=== PATIENT | female | born 1950 | race Caucasian/White ===

== ENCOUNTER 2022-01-29 09:26 | Observation (INO) ==
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
[2022-01-29] MEDS ORDERED: HYDROmorphone 1 MG/ML SYRINGE IM ONE (09:52)
--- NOTE | 2022-01-29 10:41 | Cat Scan Report ---
INDICATION: Pain in LT femur TECHNIQUE: Axial images through the pelvis and left thigh. Sagittal and coronal reformatted images. Intravenous contrast material was not administered. COMPARISON: None. FINDINGS: L4 and L5 vertebral body heights are within normal limits. There is degenerative disc disease at L4-5 and L5-S1 with vacuum discs. No detectable disc herniation. There is degenerative facet arthropathy with osseous and ligamentous hypertrophy. There is spinal canal stenosis at L4-5. Sacrum is negative. No insufficiency fracture. No lytic lesion. Pelvis is negative. There is no fracture. No lytic or sclerotic lesion. Superior and inferior pubic rami are negative. No acute fracture. Left femoral head and neck are negative. There is no fracture. No evidence for avascular necrosis. Right hip is negative. Left femur is negative. There is no fracture. No cortical destruction. No periosteal new bone formation. No soft tissue intrapelvic abnormality. Uterus is anteflexed. There is no adnexal mass. No free intraperitoneal fluid. There is sigmoid diverticulosis without evidence for diverticulitis There is mild atherosclerotic calcification of the distal abdominal aorta and common iliac arteries. No aneurysmal dilatation. There is calcified plaque in the left common femoral artery. There is extensive calcification of the left superficial femoral artery and popliteal artery. There is probable stenosis of the left popliteal artery. Vascular patency is not evaluated on this noncontrast enhanced examination No soft tissue mass. No fluid collection or soft tissue gas. IMPRESSION: 1. No acute fracture 2. Atherosclerotic calcification involving the left superficial femoral artery and popliteal artery. Probable popliteal artery stenosis. Vascular patency is not evaluated on this noncontrast enhanced examination 3. Degenerative disc disease and facet arthropathy at L4-5 and L5-S1. L4-5 spinal canal stenosis 4. Sigmoid diverticulosis. No evidence for diverticulitis Interpreted and Authenticated by: Robert Boyd 01/29/22
[2022-01-29] MEDS ORDERED: HYDROmorphone 0.5 MG/0.5 ML SYRINGE IV PRN (11:44)
[2022-01-29 12:21] LABS: POC Calcium, Ionized 0.92 (1.16-1.32); POC Creatinine 3.8 (0.6-1.2); POC Potassium 3.8 (3.3-5.1)
--- NOTE | 2022-01-29 12:37 | Cat Scan Report ---
INDICATION: L knee pain TECHNIQUE: Axial images through the left knee. Sagittal and coronal reformatted images. COMPARISON: Previous CT scan of the left femur dated 01/29/2022 FINDINGS: Distal left femur is intact. No fracture. Femoral condyles are negative. Proximal tibia is negative. No tibial plateau fracture. There is a 5 mm osteochondral lesion in the lateral tibial plateau. This is not an acute abnormality. Mild degenerative narrowing of the lateral femoral-tibial joint. Small suprapatellar joint effusion demonstrated. Anterior cruciate ligament is grossly intact. Posterior cruciate ligament appears normal. Patella is negative. No patellar fracture. Quadriceps and patellar tendons are normal. There is atherosclerotic calcification of the distal superficial femoral artery and popliteal artery. Popliteal artery stenosis is possible. No other soft tissue abnormality. There is no popliteal cyst. No prepatellar soft tissue abnormality. IMPRESSION: 1. No left knee fracture 2. Mild degenerative joint disease. 5 mm osteochondral lesion in the lateral tibial plateau 3. Small joint effusion 4. Atherosclerotic calcification. Popliteal artery stenosis is possible Interpreted and Authenticated by: Robert Boyd 01/29/22
--- NOTE | 2022-01-29 12:51 | Cat Scan Report ---
INDICATION: Low back pain with Radiculopathy TECHNIQUE: Axial images of the lumbar spine. Sagittal and reformatted images. Axial angled reformatted images. COMPARISON: None. FINDINGS: Focal angulation of the anterior cortex of the L3 vertebral body. This may be a manifestation of mild compression informative. Superior endplate appears intact. Chronicity is not certain. There is no paraspinal soft tissue hematoma. There is no lytic lesion. No evidence for pathologic fracture. Other lumbar vertebral body heights are normal. Mild degenerative disc disease at L2-3. There is a bulging disc. There is facet arthropathy of mild osseous and ligamentous hypertrophy. There is mild spinal canal. Degenerative disc disease at L3-4. There is a bulging disc without well-defined focal herniation. There is facet arthropathy with osseous and ligamentous hypertrophy. There is moderate spinal canal stenosis. No foraminal stenosis. Degenerative disc disease at L4-5. There is a vacuum disc. There is bulging disc without detectable focal herniation. There is facet arthropathy with osseous and ligamentous hypertrophy and high-grade spinal canal stenosis. Degenerative disc disease at L5-S1. There is a bulging disc. There is mild spinal canal stenosis. No focal herniation. Sacrum and sacroiliac joints are unremarkable. No lytic lesion. No insufficiency fracture. There is atherosclerotic calcification of the abdominal aorta. No abdominal aortic aneurysm. 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 There is bilateral renal atrophy. No hydronephrosis. There is sigmoid diverticulosis without evidence for diverticulitis. IMPRESSION: 1. Cortical angulation involving the anterior aspects of the L3 vertebral body. Findings may be consistent with mild compression deformity. Superior endplate is intact. No significant paraspinal soft tissue hematoma. No evidence of pathologic fracture 2. Multilevel degenerative disc disease and facet arthropathy. Mild spinal canal stenosis at L2-3 and L5-S1. Moderate spinal canal stenosis at L3-4. High-grade spinal canal stenosis at L4-5 3. Atherosclerotic disease. 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 Sigmoid diverticulosis. No diverticulitis Interpreted and Authenticated by: Robert Boyd 01/29/22
[2022-01-29 13:11] LABS: Basophils # (Auto) 0.05 K/mcL (0.00-0.30); Basophils % (Auto) 0.3 % (0.0-2.0); Eosinophils # (Auto) 0.04 K/mcL (0.00-0.70); Eosinophils % (Auto) 0.3 % (0.0-7.0); Hematocrit 36.1 % (34.1-44.9); Hemoglobin 11.5 g/dL (11.2-15.7); Lymphocytes # (Auto) 2.59 K/mcL (1.50-4.80); Lymphocytes % (Auto) 16.9 % (15.5-49.0); Mean Cell Volume 91.4 fL (80.0-100.0); Mean Corpuscular HGB Conc 31.9 g/dL (31.0-36.0); Mean Platelet Volume 8.8 fL (8.8-12.5); Monocytes # (Auto) 1.26 K/mcL (0.10-0.90); Monocytes % (Auto) 8.2 % (1.0-12.0); Neutrophils % (Auto) 73.7 % (38.0-78.0); Platelet Count 440 K/mcL (140-440); RBC 3.95 M/mcL (3.59-5.38); Red Cell Distribution Width 15.1 % (11.5-14.5); WBC 15.4 K/mcL (4.5-11.0)
[2022-01-29 13:52] LABS: Appearance,Urine Clear (Clear); Bacteria,Urine FEW /hpf (0); Bilirubin,Urine Negative (Negative); Color,Urine Yellow; Culture Indicated,Urine Yes; Glucose,Urine (UA) Negative (Negative); Ketones,Urine Trace mg/dL (Negative); Leukocyte Esterase,Urine Trace /uL (Negative); Mucus,Urine FEW /hpf; Nitrate,Urine Negative (Negative); PH,Urine 7.5 (5.0-9.0); Specific Gravity,Urine 1.015 (1.000-1.035); Urine Blood Negative ery/mcL (Negative); Urine Hyaline Cast 12 /lph (0-2); Urine RBC 1 /hpf (0-3); Urine Squamous Epithelial Cell 2 /hpf (0-4); Urine WBC 2 /hpf (0-4); Urobilinogen,Urine Normal
[2022-01-29] MEDS ORDERED: cefTRIAXone 1 GM VIAL IV ONE (13:56)
--- NOTE | 2022-01-29 15:30 | XRay Report ---
INDICATION: Leukocytosis and weakness TECHNIQUE: AP portable supine chest x-ray COMPARISON: Previous chest x-rays dated 10/11/2012, 08/18/2008 FINDINGS: Lungs:Lungs are negative. No focal pulmonary parenchymal infiltrate or mass Heart, vascular:No significant cardiomegaly. Pulmonary vascularity is normal. No pulmonary edema or pulmonary congestion Mediastinum, arslan:No mediastinal widening. No hilar mass Pleura:No pleural fluid. No pleural-based mass or calcification Skeletal:Negative. IMPRESSION: 1. Negative AP supine chest x-ray 2. No significant interval change Interpreted and Authenticated by: Robert Boyd 01/29/22
[2022-01-29 16:42] LABS: ALT/SGPT 27 U/L (<40); AST/SGOT 27 U/L (<32); Albumin 3.8 gm/dL (3.2-5.2); Alkaline Phosphatase 129 U/L (39-117); Bilirubin,Direct < 0.2 mg/dL (0-0.3); Bilirubin,Total 0.3 mg/dL (0.1-1.0); Globulin 2.9 gm/dL (2.2-3.7)
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
[2022-01-29 17:48] LABS: Anisocytosis 1+ (None Seen); Band Neutrophils % 1 % (0-10); Lymphocytes % 16 % (15-49); Monocytes % (Manual) 7 % (1-12); Platelet Estimate NORMAL (Normal); RBC Morphology ABNORMAL (Normal); Segmented Neutrophils % 76 % (38-78)
[2022-01-29] MEDS ORDERED: ACETAMINOPHEN 325 MG TABLET PO PRN (18:14)
[2022-01-29] MEDS ORDERED: DEXTROSE 31 GM ORAL.SUSP PO PRN (18:14)
[2022-01-29] MEDS ORDERED: LABETALOL 5 MG/ML ML IV PRN (18:14)
[2022-01-29] MEDS ORDERED: DEXTROSE 50% 50 ML VIAL IV PRN (18:14)
[2022-01-29] MEDS ORDERED: POLYETHYLENE GLYCOL 3350 17 GM PACKET PO PRN (18:14)
[2022-01-29] MEDS ORDERED: MAGNESIUM SULFATE 2 GM/50 ML BAG IV PRN (18:14)
[2022-01-29] MEDS ORDERED: IPRATROPIUM/ALBUTEROL 3 ML AMPUL.NEB NEB PRN (18:14)
[2022-01-29] MEDS ORDERED: hydrALAZINE 20 MG/ML VIAL IV PRN (18:14)
[2022-01-29] MEDS ORDERED: POTASSIUM CHLORIDE 20 MEQ TABLET PO PRN ×2 (18:14)
[2022-01-29] MEDS ORDERED: ONDANSETRON 4 MG/2 ML VIAL IV PRN (18:14)
[2022-01-29] MEDS ORDERED: SENNOSIDES 1 TABLET PO PRN (18:14)
[2022-01-29] MEDS ORDERED: POTASSIUM CHLORIDE 40 MEQ in DEXTROSE 5% IN WATER 500 ML IV PRN (18:14)
[2022-01-29] MEDS: INSULIN LISPRO 1 UNIT/0.01 ML UNIT SQ SCH ×2 (19:02→22:07)
[2022-01-29] MEDS: 0.9 % SODIUM CHLORIDE 10 ML SYRINGE IV SCH (21:07)
[2022-01-29] MEDS: HEPARIN 5,000 UNIT/ML VIAL SQ SCH (21:07)
[2022-01-29] MEDS: oxyCODONE/APAP 5/325MG TABLET PO PRN (21:09)
[2022-01-29] MEDS: DOCUSATE SODIUM 100 MG CAPSULE PO SCH (21:11)
[2022-01-30] MEDS: morphine 4 MG/ML VIAL IV PRN ×2 (00:22→12:06)
[2022-01-30] MEDS: 0.9 % SODIUM CHLORIDE 10 ML SYRINGE IV SCH ×3 (05:23→20:24)
[2022-01-30] MEDS: INSULIN LISPRO 1 UNIT/0.01 ML UNIT SQ SCH ×4 (06:58→20:24)
--- NOTE | 2022-01-30 07:29 | Internal Med Progress Note ---
SUBJECTIVE Subjective Patient information: Note initiated : 01/30/22 at 7:25 am Service Date, if different from initiated Date: [] Patient: Fiorella Mcfarlane a 71 y/o F admitted on 01/29/22 for Weakness. Chief Complaint: [] Interval history: History of present illness: Ms. Mcfarlane is a 71 year old F Presents to the ED with weakness following left hip pain. She was recently admitted at [facility] overnight for hip pain and hypertensive urgency. She was diagnosed with sciatica and discharged with diclofenac gel. Family unable to obtain the prescription due to cost. Presents back today to [facility] because hemodialysis is unavailable at [facility], and has had continued hip pain. She denies any fever chills saddle anesthesia bowel or bladder loss. She does get injections by Dr. Carpio occasionally for her hip pain. She denies dysuria. Patient states she has chronic hip pain and has been getting injections on the right side and site has been doing well as of late but then her left side started acting up and more severe than her right. Imaging unremarkable except for significant DJD of spine and spinal stenosis. She had 1 episode of nausea vomiting at dialysis on Monday but otherwise feeling well and none since. Patient is weak and does live by herself and has had falls. She found found to have leukocytosis. Chest x-ray unremarkable. Urinalysis not indicative of infection unless early infection. Dr. De La Garza contacted and available for hemodialysis consult. 01/29 No overnight event or new complaints. Patient feeling a little bit better. Otherwise worried to start getting up moving because the pain typically starts when she moves. Review of Systems: denies headache/fever/chills/nausea/vomiting/chest or abdominal pain/cough /dyspnea/diarrhea. Otherwise see above. Constitutional Vitals: Vital Signs Temp Pulse Resp BP Pulse Ox O2 Del Method 97.4 F 79 16 139/65 98 01/30/22 03:25 01/30/22 03:25 01/30/22 07:08 01/30/22 03:25 01/30/22 07:08 01/30/22 07:08 Period Temp Pulse Resp BP Sys/Oliveira Pulse Ox O2 Del Method O2 Flow Rate Last 24 Hr 97.4 F-98.4 F 71-86 16-20 108-181/55-92 96-100 Room Air-Room Air Intake and Output 01/29/22 01/30/22 01/30/22 21:59 05:59 13:59 Intake Total 120 Output Total 225 Balance -105 Weight 111.175 kg Intake & Output: Intake & Output 01/29/22 01/30/22 01/30/22 21:59 05:59 13:59 Intake Total 120 Output Total 225 Balance -105 Weight 111.175 kg Intake: Oral 120 Output: Void Amount 225 Other: Meal Dinner diet cranberry juice Percent of Meal Consumed 75% 100% Feeding Ability Independent Independent Urine Appearance Clear Urine Color Pale Exam: General: Alert, Awake, No acute Distress, obese Eyes/N/T: EOMI, Head/Neck: neck supple, CV: RRR, 3/6SM, Pulm: Clear b/l, no wheezing/rhonchi/rales Abd: soft, nontender, +BS x4 Ext: no clubbing/cyanosis, mild b/l LE edema Neuro: Alert, no focal deficits, moves all extremities, Skin: warm/dry OBJ DATA Labs CBC & Chem 7: 01/30/22 07:33 01/30/22 05:15 Labs: Abnormal Lab Results 01/29/22 01/29/22 01/29/22 12:15 12:10 12:10 WBC RDW Immature Gran % (Auto) Tyrrell # (Auto) Immature Gran # Absolute Neutrophils RBC Morphology Abnormal A Anisocytosis 1+ A POC Total CO2 21.0 L POC BUN 34 H POC Creatinine 3.8 H POC Glucose 199 H POC WB Ioniz Calcium 0.92 L Alkaline Phosphatase 129 H Urine Protein Urine Ketones Ur Leukocyte Esterase Urine Bacteria Hyaline Casts Urine Mucus 01/29/22 01/29/22 12:10 12:10 WBC 15.4 H RDW 15.1 H Immature Gran % (Auto) 0.6 H Tyrrell # (Auto) 1.26 H Immature Gran # 0.09 H Absolute Neutrophils 11.32 H RBC Morphology Anisocytosis POC Total CO2 POC BUN POC Creatinine POC Glucose POC WB Ioniz Calcium Alkaline Phosphatase Urine Protein 100 mg/dl A Urine Ketones Trace A Ur Leukocyte Esterase Trace A Urine Bacteria Few A Hyaline Casts 12 H Urine Mucus Few A Meds: Medications Acetaminophen (Acetaminophen 325 Mg Tablet) 650 mg PO Q6HP PRN; Protocol PRN Reason: Per Pain Protocol/Fever > 101 Albuterol/Ipratropium (Ipratropium/Albuterol 3 Ml Ampul.Neb) 3 ml NEB Q4HP PRN PRN Reason: Shortness Of Breath Dextrose (Dextrose 50% 50 Ml Vial) 0 ml IV UD PRN PRN Reason: Per Sliding Scale Diagnostic Test (Pha) (Accu-Chek 1 Each Strip) 1 each FS [facility] Last Admin: 01/30/22 06:58 Dose: 1 each Docusate Sodium (Docusate Sodium 100 Mg Capsule) 100 mg PO BID [facility] Last Admin: 01/29/22 21:11 Dose: Not Given Glucose (Dextrose 31 Gm Oral.Susp) 15 gm PO PRN PRN PRN Reason: Hypoglycemia Heparin Sodium (Porcine) (Heparin 5,000 Unit/Ml Vial) 5,000 unit SQ Q12 [facility] Last Admin: 01/29/22 21:07 Dose: 5,000 unit Hydralazine HCl (Hydralazine 20 Mg/Ml Vial) 0 mg IV Q2HP PRN PRN Reason: Hypertension Potassium Chloride 40 meq/ (Dextrose) 520 mls @ 130 mls/hr IV UD PRN PRN Reason: Potassium < 3 Magnesium Sulfate (Magnesium Sulfate) 2 gm in 50 mls @ 50 mls/hr IV UD PRN PRN Reason: Magnesium </= 1.6 Insulin Human Lispro (Insulin Lispro 1 Unit/0.01 Ml Unit) 0 unit SQ [facility]; Protocol Last Admin: 01/30/22 06:58 Dose: Not Given Labetalol HCl (Labetalol 5 Mg/Ml Ml) 0 mg IV Q2HP PRN PRN Reason: Hypertension Morphine Sulfate (Morphine 4 Mg/Ml Vial) 0 mg IV Q3HP PRN PRN Reason: Pain Last Admin: 01/30/22 00:22 Dose: 3 mg Ondansetron HCl (Ondansetron 4 Mg/2 Ml Vial) 4 mg IV Q4HP PRN PRN Reason: Nausea And Vomiting Oxycodone/Acetaminophen (Oxycodone/Apap 5/325mg Tablet) 1 tab PO Q4-6HP PRN; Protocol PRN Reason: Per Pain Protocol Last Admin: 01/29/22 21:09 Dose: 1 tab Polyethylene Glycol (Polyethylene Glycol 3350 17 Gm Packet) 17 gm PO DAILYP PRN PRN Reason: Constipation Potassium Chloride (Potassium Chloride 20 Meq Tablet) 40 meq PO UD PRN PRN Reason: Potssium is 3-3.5 Potassium Chloride (Potassium Chloride 20 Meq Tablet) 40 meq PO UD PRN PRN Reason: Potassium < 3 Senna (Sennosides 1 Tablet) 2 tab PO DAILYP PRN PRN Reason: Constipation Sodium Chloride (0.9 % Sodium Chloride 10 Ml Syringe) 10 ml IV Q8 RUEL Last Admin: 01/30/22 05:23 Dose: 10 ml A/P Narrative A/P Narrative: A: *Generalized weakness/deconditioning/falling: *Acute on chronic left hip pain: Follows with Dr. Carpio for injections -Recently admitted overnight at [place] for sciatica. -Was receiving injections to the right hip with good improvement but now the left "acting up" *ESRD: *DM 2: *PVD: Follows with Dr. Carpio *HTN: P: -Pain control -Pending UC -monitor cbc -Nephro for HD -cont asa/Plavix/statin -cont BB, lasix -ssi and basal -PT/OT -CM for placement -f/u with Dr. Carpio for hip injections -ppx: Heparin Time Spent With Patient Time: Total time spent is greater than 50% in coordination of care (as documented) at patient's floor/unit and/or counseling patient: QUALITY VTE Deep Vein Thrombosis/Pulmonary Embolism Present on Admission: No
[2022-01-30 07:30] LABS: ALT/SGPT 26 U/L (<40); AST/SGOT 29 U/L (<32); Albumin 2.9 gm/dL (3.2-5.2); Albumin/Globulin Ratio 0.8 (1.0-2.3); Alkaline Phosphatase 118 U/L (39-117); Bilirubin,Direct < 0.2 mg/dL (0-0.3); Bilirubin,Total 0.2 mg/dL (0.1-1.0); Blood Urea Nitrogen 41 mg/dL (8-23); Calcium 7.9 mg/dL (8.6-10.4); Carbon Dioxide 21 mmol/L (22-30); Chloride 97 mmol/L (96-108); Globulin 3.7 gm/dL (2.2-3.7); Glomerular Filtration Rate 11; Glucose 122 mg/dL (70-105); Lactate Dehydrogenase 280 U/L (135-225); Phosphorous 3.3 mg/dL (2.5-4.5); Triglycerides 102 mg/dL (<150); Uric Acid 6.3 mg/dL (2.5-8.0)
[2022-01-30 08:38] LABS: Basophils # (Auto) 0.02 K/mcL (0.00-0.30); Basophils % (Auto) 0.2 % (0.0-2.0); Eosinophils # (Auto) 0.04 K/mcL (0.00-0.70); Eosinophils % (Auto) 0.5 % (0.0-7.0); Hematocrit 33.3 % (34.1-44.9); Hemoglobin 10.5 g/dL (11.2-15.7); Lymphocytes # (Auto) 1.59 K/mcL (1.50-4.80); Lymphocytes % (Auto) 18.3 % (15.5-49.0); Mean Cell Volume 93.3 fL (80.0-100.0); Mean Corpuscular HGB Conc 31.5 g/dL (31.0-36.0); Mean Platelet Volume 8.6 fL (8.8-12.5); Monocytes # (Auto) 0.69 K/mcL (0.10-0.90); Monocytes % (Auto) 7.9 % (1.0-12.0); Neutrophils % (Auto) 72.5 % (38.0-78.0); Platelet Count 337 K/mcL (140-440); RBC 3.57 M/mcL (3.59-5.38); Red Cell Distribution Width 15.2 % (11.5-14.5); WBC 8.7 K/mcL (4.5-11.0)
[2022-01-30] MEDS: DOCUSATE SODIUM 100 MG CAPSULE PO SCH ×2 (08:48→20:15)
[2022-01-30] MEDS: HEPARIN 5,000 UNIT/ML VIAL SQ SCH ×2 (08:48→20:23)
[2022-01-30] MEDS: ASPIRIN 81 MG TAB.CHEW PO SCH (08:48)
[2022-01-30] MEDS: CLOPIDOGREL 75 MG TABLET PO SCH (08:49)
[2022-01-30] MEDS: METOPROLOL TARTRATE 25 MG TABLET PO SCH ×2 (08:49→20:23)
[2022-01-30] MEDS: INSULIN GLARGINE, HUMAN 1 UNIT/0.01 ML SQ SCH ×2 (08:49→20:23)
[2022-01-30] MEDS: oxyCODONE/APAP 5/325MG TABLET PO PRN ×3 (08:56→18:57)
[2022-01-30] MEDS ORDERED: CALCITRIOL 0.5 MCG CAPSULE PO SCH (09:00)
[2022-01-30] MEDS ORDERED: CALCITRIOL 0.25 MCG CAPSULE PO SCH (09:00)
--- NOTE | 2022-01-30 12:46 | Discharge Summary ---
Discharge Provider Provider IMPORTANT FOLLOW-UP INFORMATION FOR PCP: Patient information: Note initiated : 01/30/22 at 12:45 pm Service Date, if different from initiated Date: [] Patient: Fiorella Mcfarlane 71 y/o F admitted on 01/29/22 for Weakness. Chief Complaint: [] Date of admission: 01/29/22 17:53 Primary care physician: Randi Cameron Consults: 01/29/22 Consult to Physician [CONS] Stat Comment: Consulting Provider: Dawood Waddell Reason For Exam: Physician to Consult 01/29/22 18:14 Consult to Physician [CONS] Routine Comment: esrd Consulting Provider: Naomy De La Garza Reason For Exam: Physician to Consult COURSE Hospital Course Hospital course: History of present illness: Ms. Mcfarlane is a 71 year old F Presents to the ED with weakness following left hip pain. She was recently admi tted at [facility] overnight for hip pain and hypertensive urgency. She was diagnosed with sciatica and discharged with diclofenac gel. Family unable to obtain the prescription due to cost. Presents back today to [facility] because hemodialysis is unavailable at [place], and has had continued hip pain. She denies any fever chills saddle anesthesia bowel or bladder loss. She does get injections by Dr. Carpio occasionally for her hip pain. She denies dysuria. Patient states she has chronic hip pain and has been getting injections on the right side and site has been doing well as of late but then her left side started acting up and more severe than her right. Imaging unremarkable except for significant DJD of spine and spinal stenosis. She had 1 episode of nausea vomiting at dialysis on Monday but otherwise feeling well and none since. Patient is weak and does live by herself and has had falls. She found found to have leukocytosis. Chest x-ray unremarkable. Urinalysis not indicative of infection unless early infection. Dr. De La Garza contacted and available for hemodialysis consult. 01/30 No overnight event or new complaints. Patient feeling a little bit better. Otherwise worried to start getting up moving because the pain typically starts when she moves. 01/31 Patient got up to the bathroom yesterday use in the assist walker. She has she did fairly well and that she got morphine prior to getting up. Try an LSO brace. Awaiting labs. No other pains or complaints. A: *Generalized weakness/deconditioning/falling: *Acute on chronic left hip pain: Follows with Dr. Carpio for injections -Recently admitted overnight at [place] for sciatica. -Was receiving injections to the right hip with good improvement but now the left "acting up" *ESRD: *DM 2: *PVD: Follows with Dr. Carpio *HTN: P: -f/u with Dr. Carpio for hip injections Discharge diagnosis: Generalized weakness deconditioning following acute on chronic left hip franklin Secondary discharge diagnosis: Diabetes peripheral vascular disease end-stage renal disease hypertension Time Spent with Patient Time attestation: Total time spent providing and/or coordinating discharge services: Time spent: Greater than 30 minutes EXAM Constitutional Vitals: Temp Pulse Resp BP Pulse Ox O2 Del Method 97.5 F 68 16 132/71 97 01/30/22 11:33 01/30/22 11:33 01/30/22 11:33 01/30/22 11:33 01/30/22 11:33 01/30/22 11:33 Discharge Data Data Completed and Pending Labs on day of discharge: Labs from last 24 hours 01/30/22 01/30/22 01/30/22 07:33 05:15 05:15 WBC 8.7 TNP RBC 3.57 L TNP Hgb 10.5 L TNP Hct 33.3 L TNP MCV 93.3 TNP MCH 29.4 TNP MCHC 31.5 TNP RDW 15.2 H TNP Plt Count 337 TNP MPV 8.6 L TNP Immature Gran % (Auto) 0.6 H TNP Neut % (Auto) 72.5 TNP Lymph % (Auto) 18.3 TNP Davis % (Auto) 7.9 TNP Eos % (Auto) 0.5 TNP Baso % (Auto) 0.2 TNP Lymph # (Auto) 1.59 TNP Davis # (Auto) 0.69 TNP Eos # (Auto) 0.04 TNP Baso # (Auto) 0.02 TNP Seg Neutrophils % Band Neutrophils % Lymphocytes % Monocytes % (Manual) Immature Gran # 0.05 TNP Absolute Neutrophils 6.31 TNP Differential Comment TNP Platelet Estimate RBC Morphology Anisocytosis Sodium 136 Potassium 4.5 Chloride 97 Carbon Dioxide 21 L Anion Gap 18.0 H BUN 41 H Creatinine 3.9 H GFR Calculation 11 Glucose 122 H Uric Acid 6.3 Calcium 7.9 L Phosphorus 3.3 Magnesium 2.3 Total Bilirubin 0.2 Direct Bilirubin < 0.2 GGT 83 H AST 29 ALT 26 Alkaline Phosphatase 118 H Lactate Dehydrogenase 280 H Total Protein 6.6 Albumin 2.9 L Globulin 3.7 Albumin/Globulin Ratio 0.8 L Triglycerides 102 Urine Color Urine Appearance Urine pH Ur Specific [place] Urine Protein Urine Glucose (UA) Urine Ketones Urine Occult Blood Urine Nitrate Urine Bilirubin Urine Urobilinogen Ur Leukocyte Esterase Urine RBC Urine WBC Ur Squamous Epith Cells Urine Bacteria Hyaline Casts Urine Mucus Ur Culture Indicated? 01/29/22 01/29/22 01/29/22 12:10 12:10 12:10 WBC RBC Hgb Hct MCV MCH MCHC RDW Plt Count MPV Immature Gran % (Auto) Neut % (Auto) Lymph % (Auto) Davis % (Auto) Eos % (Auto) Baso % (Auto) Lymph # (Auto) Davis # (Auto) Eos # (Auto) Baso # (Auto) Seg Neutrophils % 76 Band Neutrophils % 1 Lymphocytes % 16 Monocytes % (Manual) 7 Immature Gran # Absolute Neutrophils Differential Comment Platelet Estimate Normal RBC Morphology Abnormal A Anisocytosis 1+ A Sodium Potassium Chloride Carbon Dioxide Anion Gap BUN Creatinine GFR Calculation Glucose Uric Acid Calcium Phosphorus Magnesium Total Bilirubin 0.3 Direct Bilirubin < 0.2 GGT AST 27 ALT 27 Alkaline Phosphatase 129 H Lactate Dehydrogenase Total Protein 6.7 Albumin 3.8 Globulin 2.9 Albumin/Globulin Ratio Triglycerides Urine Color Yellow Urine Appearance Clear Urine pH 7.5 Ur Specific [place] 1.015 Urine Protein 100 mg/dl A Urine Glucose (UA) Negative Urine Ketones Trace A Urine Occult Blood Negative Urine Nitrate Negative Urine Bilirubin Negative Urine Urobilinogen Normal Ur Leukocyte Esterase Trace A Urine RBC 1 Urine WBC 2 Ur Squamous Epith Cells 2 Urine Bacteria Few A Hyaline Casts 12 H Urine Mucus Few A Ur Culture Indicated? Yes 01/29/22 12:10 WBC 15.4 H RBC 3.95 Hgb 11.5 Hct 36.1 MCV 91.4 MCH 29.1 MCHC 31.9 RDW 15.1 H Plt Count 440 MPV 8.8 Immature Gran % (Auto) 0.6 H Neut % (Auto) 73.7 Lymph % (Auto) 16.9 Davis % (Auto) 8.2 Eos % (Auto) 0.3 Baso % (Auto) 0.3 Lymph # (Auto) 2.59 Davis # (Auto) 1.26 H Eos # (Auto) 0.04 Baso # (Auto) 0.05 Seg Neutrophils % Band Neutrophils % Lymphocytes % Monocytes % (Manual) Immature Gran # 0.09 H Absolute Neutrophils 11.32 H Differential Comment Platelet Estimate RBC Morphology Anisocytosis Sodium Potassium Chloride Carbon Dioxide Anion Gap BUN Creatinine GFR Calculation Glucose Uric Acid Calcium Phosphorus Magnesium Total Bilirubin Direct Bilirubin GGT AST ALT Alkaline Phosphatase Lactate Dehydrogenase Total Protein Albumin Globulin Albumin/Globulin Ratio Triglycerides Urine Color Urine Appearance Urine pH Ur Specific [place] Urine Protein Urine Glucose (UA) Urine Ketones Urine Occult Blood Urine Nitrate Urine Bilirubin Urine Urobilinogen Ur Leukocyte Esterase Urine RBC Urine WBC Ur Squamous Epith Cells Urine Bacteria Hyaline Casts Urine Mucus Ur Culture Indicated? Discharge Plan Patient/Caregiver Discharge Instructions Activity: increase activity as tolerated Diet: Consistent Carbohydrate Prescriptions: New methocarbamol 500 mg Tablet 500 mg PO QIDP PRN (Reason: Muscle Spasm) Qty: 30 0RF Continued atorvastatin 80 mg tablet 80 mg PO QHS Qty: 30 5RF calcitriol 0.5 mcg capsule 1 mcg PO 3XW furosemide 40 mg tablet 40 mg PO BID clopidogrel 75 mg tablet 75 mg PO QDAY metoprolol tartrate 25 mg tablet 25 mg PO BID aspirin 81 MG tablet,delayed release (DR/EC) 81 mg PO DAILY insulin aspart U-100 100 UNIT/ML solution 1 unit subcut QPM Rx Instructions: SS: 150-180=2u, 181-210=3u, 211-240=4u, 241-270=5u, 271-300=6u, 301-330=7u, 331-360=8u, >360= call office ascorbate calcium (vitamin C) 500 MG tablet 500 mg PO DAILY geriatric multivitamin-min Tablet 1 tab PO DAILY Levemir FlexTouch U-100 Insuln 100 unit/mL (3 mL) insulin pen 10 unit SUB-Q BID Follow Up Plan Follow up with: Randi Cameron DNP, COMPLIANCE COUNSEL [Primary Care Provider] - Robert Carpio MD [Physician] - Patient Disposition: Xfer SNF Prognosis: Fair Rehab Potential: Critical I certify that the patient requires SNF services: Yes Overall status at discharge: patient is progressing back to baseline QUALITY VTE Deep Vein Thrombosis/Pulmonary Embolism Present on Admission: No
--- NOTE | 2022-01-30 15:30 | Nephrology Progress Note ---
SUBJECTIVE Subjective Patient information: Note initiated : 01/30/22 at 3:29 pm Service Date, if different from initiated Date: [] Patient: Fiorella Mcfarlane 71 y/o F admitted on 01/29/22 for Weakness. Chief Complaint: [leg weakness] Principal diagnosis: ESRD Interval history: Last HD Monday01/28/2021. Dry wt 115 4 hr treatment MWF Primary tire shop mechanic is Dr Rose Pertinent ROS: N/A Additional PMFSH (Level 3 Only): N/A Constitutional Vitals: Vital Signs Temp Pulse Resp BP Pulse Ox O2 Del Method 36.4 C 68 16 132/71 97 01/30/22 11:33 01/30/22 11:33 01/30/22 11:33 01/30/22 11:33 01/30/22 11:33 01/30/22 11:33 Period Temp Pulse Resp BP Sys/[place] Pulse Ox O2 Del Method O2 Flow Rate Last 24 Hr 36.3 C-36.9 C 68-86 16-20 110-166/56-75 96-100 Room Air-Room Air Intake and Output 01/30/22 01/30/22 01/30/22 05:59 13:59 21:59 Intake Total 120 240 Output Total 225 Balance -105 240 Intake & Output: Intake & Output 01/30/22 01/30/22 01/30/22 05:59 13:59 21:59 Intake Total 120 240 Output Total 225 Balance -105 240 Intake: Oral 120 240 Output: Void Amount 225 Other: Meal diet cranberry juice Lunch Percent of Meal Consumed 100% 50% Feeding Ability Independent Independent Urine Appearance Clear Urine Color Pale General appearance: no acute distress ENT ENT exam: Present normal exam Neck Neck exam: Present normal inspection Respiratory Respiratory exam: Present CTAB Cardiovascular Cardiovascular exam: Present normal rate and rhythm and RRR GI/Abdominal GI/Abdominal exam: Present normal bowel sounds Extremities Exam Extremities exam: Present normal inspection; Absent pedal edema Neurological Exam Neurological exam: Present CN II-XII intact and oriented X3 Psychiatric Psychiatric exam: Present normal affect Skin Skin exam: Present dry A/P Assessment and plan (1) End stage renal disease: Status: Chronic Comment: dialysis started with Dr. Rose on Apr 25, 2016, fistula in left arm Plan HD 01/31/2022 has been ordered Time Spent With Patient Time: Total time spent is greater than 50% in coordination of care (as documented) at patient's floor/unit and/or counseling patient:
[2022-01-30] MEDS: ATORVASTATIN 40 MG TABLET PO SCH (20:23)
[2022-01-30] MEDS: METHOCARBAMOL 500 MG TABLET PO PRN (23:58)
[2022-01-31] MEDS: morphine 4 MG/ML VIAL IV PRN ×2 (00:05→13:57)
[2022-01-31] MEDS: 0.9 % SODIUM CHLORIDE 10 ML SYRINGE IV SCH ×3 (05:06→21:21)
[2022-01-31] MEDS: oxyCODONE/APAP 5/325MG TABLET PO PRN ×2 (06:22→19:29)
[2022-01-31] MEDS: INSULIN LISPRO 1 UNIT/0.01 ML UNIT SQ SCH ×4 (07:46→21:31)
--- NOTE | 2022-01-31 07:52 | Internal Med Progress Note ---
SUBJECTIVE Subjective Patient information: Note initiated : 01/31/22 at 7:51 am Service Date, if different from initiated Date: [] Patient: Fiorella Mcfarlane a 71 y/o F admitted on 01/29/22 for Weakness. Chief Complaint: [] Principal diagnosis: ESRD Interval history: History of present illness: Ms. Mcfarlane is a 71 year old F Presents to the ED with weakness following left hip pain. She was recently admitted at [facility] overnight for hip pain and hypertensive urgency. She was diagnosed with sciatica and discharged with diclofenac gel. Family unable to obtain the prescription due to cost. Presents back today to [facility] because hemodialysis is unavailable at [place], and has had continued hip pain. She denies any fever chills saddle anesthesia bowel or bladder loss. She does get injections by Dr. Balaji ramirez for her hip pain. She denies dysuria. Patient states she has chronic hip pain and has been getting injections on the right side and site has been doing well as of late but then her left side star devin acting up and more severe than her right. Imaging unremarkable except for significant DJD of spine and spinal stenosis. She had 1 episode of nausea vomiting at dialysis on Monday but otherwise feeling well and none since. Patient is weak and does live by herself and has had falls. She found found to have leukocytosis. Chest x-ray unremarkable. Urinalysis not indicative of infection unless early infection. Dr. De La Garza contacted and available for hemodialysis consult. 01/30 No overnight event or new complaints. Patient feeling a little bit better. Otherwise worried to start getting up moving because the pain typically starts when she moves. 01/31 Patient got up to the bathroom yesterday use in the assist walker. She has she did fairly well and that she got morphine prior to getting up. Try an LSO brace. Awaiting labs. No other pains or complaints. Review of Systems: denies headache/fever/chills/nausea/vomiting/chest or abdominal pain/cough/dyspnea/diarrhea. Otherwise see above. Constitutional Vitals: Vital Signs Temp Pulse Resp BP Pulse Ox O2 Del Method 97.0 F 74 16 140/69 98 01/31/22 07:28 01/31/22 07:28 01/31/22 07:28 01/31/22 07:28 01/31/22 07:28 01/31/22 07:28 Period Temp Pulse Resp BP Sys/Oliveira Pulse Ox O2 Del Method O2 Flow Rate Last 24 Hr 97.0 F-97.9 F 66-76 16-18 127-140/63-75 96-99 Room Air-Room Air Intake and Output 01/30/22 01/31/22 01/31/22 21:59 05:59 13:59 Intake Total 400 120 Output Total 200 Balance 400 -80 Weight 112.854 kg Intake & Output: Intake & Output 01/30/22 01/31/22 01/31/22 21:59 05:59 13:59 Intake Total 400 120 Output Total 200 Balance 400 -80 Weight 112.854 kg Intake: Oral 400 120 Output: Void Amount 200 Other: Meal Lunch diet cranberry juice Percent of Meal Consumed 75% 100% Feeding Ability Assist with Tray Set Up Independent Urine Appearance Clear Urine Color Dark Yellow Exam: General: Alert, Awake, No acute Distress, obese Eyes/N/T: EOMI, Head/Neck: neck supple, CV: RRR, 3/6SM, Pulm: Clear b/l, no wheezing/rhonchi/rales Abd: soft, nontender, +BS x4 Ext: no clubbing/cyanosis, mild b/l LE edema Neuro: Alert, no focal deficits, moves all extremities, Skin: warm/dry OBJ DATA Labs CBC & Chem 7: 01/30/22 07:33 01/30/22 05:15 Labs: Abnormal Lab Results 01/30/22 01/30/22 01/29/22 07:33 05:15 12:15 WBC RBC 3.57 L Hgb 10.5 L Hct 33.3 L RDW 15.2 H MPV 8.6 L Immature Gran % (Auto) 0.6 H [place] # (Auto) Immature Gran # Absolute Neutrophils RBC Morphology Anisocytosis Carbon Dioxide 21 L POC Total CO2 21.0 L Anion Gap 18.0 H POC BUN 34 H BUN 41 H Creatinine 3.9 H POC Creatinine 3.8 H Glucose 122 H POC Glucose 199 H Calcium 7.9 L POC WB Ioniz Calcium 0.92 L GGT 83 H Alkaline Phosphatase 118 H Lactate Dehydrogenase 280 H Albumin 2.9 L Albumin/Globulin Ratio 0.8 L Urine Protein Urine Ketones Ur Leukocyte Esterase Urine Bacteria Hyaline Casts Urine Mucus 01/29/22 01/29/22 01/29/22 12:10 12:10 12:10 WBC RBC Hgb Hct RDW MPV Immature Gran % (Auto) [place] # (Auto) Immature Gran # Absolute Neutrophils RBC Morphology Abnormal A Anisocytosis 1+ A Carbon Dioxide POC Total CO2 Anion Gap POC BUN BUN Creatinine POC Creatinine Glucose POC Glucose Calcium POC WB Ioniz Calcium GGT Alkaline Phosphatase 129 H Lactate Dehydrogenase Albumin Albumin/Globulin Ratio Urine Protein 100 mg/dl A Urine Ketones Trace A Ur Leukocyte Esterase Trace A Urine Bacteria Few A Hyaline Casts 12 H Urine Mucus Few A 01/29/22 12:10 WBC 15.4 H RBC Hgb Hct RDW 15.1 H MPV Immature Gran % (Auto) 0.6 H [place] # (Auto) 1.26 H Immature Gran # 0.09 H Absolute Neutrophils 11.32 H RBC Morphology Anisocytosis Carbon Dioxide POC Total CO2 Anion Gap POC BUN BUN Creatinine POC Creatinine Glucose POC Glucose Calcium POC WB Ioniz Calcium GGT Alkaline Phosphatase Lactate Dehydrogenase Albumin Albumin/Globulin Ratio Urine Protein Urine Ketones Ur Leukocyte Esterase Urine Bacteria Hyaline Casts Urine Mucus Meds: Medications Acetaminophen (Acetaminophen 325 Mg Tablet) 650 mg PO Q6HP PRN; Protocol PRN Reason: Per Pain Protocol/Fever > 101 Albuterol/Ipratropium (Ipratropium/Albuterol 3 Ml Ampul.Neb) 3 ml NEB Q4HP PRN PRN Reason: Shortness Of Breath Aspirin (Aspirin 81 Mg Tab.Chew) 81 mg PO DAILY [facility] Last Admin: 01/30/22 08:48 Dose: 81 mg Atorvastatin Calcium (Atorvastatin 40 Mg Tablet) 80 mg PO QHS [facility] Last Admin: 01/30/22 20:23 Dose: 80 mg Calcitriol (Calcitriol 0.25 Mcg Capsule) 1 mcg PO 3XW [facility] Clopidogrel Bisulfate (Clopidogrel 75 Mg Tablet) 75 mg PO QDAY [facility] Last Admin: 01/30/22 08:49 Dose: 75 mg Dextrose (Dextrose 50% 50 Ml Vial) 0 ml IV UD PRN PRN Reason: Per Sliding Scale Diagnostic Test (Pha) (Accu-Chek 1 Each Strip) 1 each FS ACHS [facility] Last Admin: 01/31/22 07:24 Dose: 1 each Docusate Sodium (Docusate Sodium 100 Mg Capsule) 100 mg PO BID [facility] Last Admin: 01/30/22 20:15 Dose: Not Given Furosemide (Furosemide 40 Mg Tablet) 40 mg PO BID [facility] Glucose (Dextrose 31 Gm Oral.Susp) 15 gm PO PRN PRN PRN Reason: Hypoglycemia Heparin Sodium (Porcine) (Heparin 5,000 Unit/Ml Vial) 5,000 unit SQ Q12 [facility] Last Admin: 01/30/22 20:23 Dose: 5,000 unit Hydralazine HCl (Hydralazine 20 Mg/Ml Vial) 0 mg IV Q2HP PRN PRN Reason: Hypertension Potassium Chloride 40 meq/ (Dextrose) 520 mls @ 130 mls/hr IV UD PRN PRN Reason: Potassium < 3 Magnesium Sulfate (Magnesium Sulfate) 2 gm in 50 mls @ 50 mls/hr IV UD PRN PRN Reason: Magnesium </= 1.6 Insulin Glargine (Insulin Glargine, Human 1 Unit/0.01 Ml) 10 unit SQ BID [facility] Last Admin: 01/30/22 20:23 Dose: 10 units Insulin Human Lispro (Insulin Lispro 1 Unit/0.01 Ml Unit) 0 unit SQ ACHS [facility]; Protocol Last Admin: 01/31/22 07:46 Dose: 2 units Labetalol HCl (Labetalol 5 Mg/Ml Ml) 0 mg IV Q2HP PRN PRN Reason: Hypertension Methocarbamol (Methocarbamol 500 Mg Tablet) 500 mg PO QIDP PRN PRN Reason: Muscle Spasm Last Admin: 01/30/22 23:58 Dose: 500 mg Metoprolol Tartrate (Metoprolol Tartrate 25 Mg Tablet) 25 mg PO BID [facility] Last Admin: 01/30/22 20:23 Dose: 25 mg Morphine Sulfate (Morphine 4 Mg/Ml Vial) 0 mg IV Q3HP PRN PRN Reason: Pain Last Admin: 01/31/22 00:05 Dose: 4 mg Ondansetron HCl (Ondansetron 4 Mg/2 Ml Vial) 4 mg IV Q4HP PRN PRN Reason: Nausea And Vomiting Oxycodone/Acetaminophen (Oxycodone/Apap 5/325mg Tablet) 1 tab PO Q4-6HP PRN; Protocol PRN Reason: Per Pain Protocol Last Admin: 01/31/22 06:22 Dose: 1 tab Polyethylene Glycol (Polyethylene Glycol 3350 17 Gm Packet) 17 gm PO DAILYP PRN PRN Reason: Constipation Potassium Chloride (Potassium Chloride 20 Meq Tablet) 40 meq PO UD PRN PRN Reason: Potssium is 3-3.5 Potassium Chloride (Potassium Chloride 20 Meq Tablet) 40 meq PO UD PRN PRN Reason: Potassium < 3 Senna (Sennosides 1 Tablet) 2 tab PO DAILYP PRN PRN Reason: Constipation Sodium Chloride (0.9 % Sodium Chloride 10 Ml Syringe) 10 ml IV Q8 [facility] Last Admin: 01/31/22 05:06 Dose: 10 ml A/P Narrative A/P Narrative: A: *Generalized weakness/deconditioning/falling: *possible L3 mild comp Fx, DJD and spinal stenosis: *Acute on chronic left hip pain: Follows with Dr. Carpio for injections -Recently admitted overnight at [place] for sciatica. -Was receiving injections to the right hip with good improvement but now the left "acting up" *ESRD: *DM 2: *PVD: Follows with Dr. Carpio *HTN: P: -Pain control -Pending UC -Nephro for HD -cont asa/Plavix/statin -cont BB, lasix -ssi and basal -PT/OT -CM for placement -f/u with Dr. Carpio for hip injections -ppx: Heparin Time Spent With Patient Time: Total time spent is greater than 50% in coordination of care (as documented) at patient's floor/unit and/or counseling patient: QUALITY VTE Deep Vein Thrombosis/Pulmonary Embolism Present on Admission: No
[2022-01-31 08:05] LABS: Hepatitis B Surface Antigen Negative (Negative)
[2022-01-31] MEDS: ASPIRIN 81 MG TAB.CHEW PO SCH (08:20)
[2022-01-31] MEDS: METHOCARBAMOL 500 MG TABLET PO PRN ×2 (08:20→16:09)
[2022-01-31] MEDS: METOPROLOL TARTRATE 25 MG TABLET PO SCH ×2 (08:20→21:17)
[2022-01-31] MEDS: CLOPIDOGREL 75 MG TABLET PO SCH (08:21)
[2022-01-31] MEDS: HEPARIN 5,000 UNIT/ML VIAL SQ SCH ×2 (08:21→21:19)
[2022-01-31] MEDS: FUROSEMIDE 40 MG TABLET PO SCH ×2 (08:21→21:17)
[2022-01-31] MEDS: INSULIN GLARGINE, HUMAN 1 UNIT/0.01 ML SQ SCH ×2 (08:21→21:21)
[2022-01-31] MEDS: DOCUSATE SODIUM 100 MG CAPSULE PO SCH ×2 (08:21→21:17)
[2022-01-31 08:28] LABS: Phosphorous 3.9 mg/dL (2.5-4.5)
[2022-01-31 08:37] LABS: Hepatitis B Surface Antibody POSITIVE (Negative)
[2022-01-31 08:38] LABS: Blood Urea Nitrogen 62 mg/dL (8-23); Calcium 7.7 mg/dL (8.6-10.4); Carbon Dioxide 22 mmol/L (22-30); Chloride 101 mmol/L (96-108); Glomerular Filtration Rate 9; Glucose 136 mg/dL (70-105)
--- NOTE | 2022-01-31 12:15 | Nephrology Progress Note ---
SUBJECTIVE Subjective Patient information: Note initiated : 01/31/22 at 12:14 pm Service Date, if different from initiated Date: [] Patient: Fiorella Mcfarlane 71 y/o F admitted on 01/29/22 for Weakness. Chief Complaint: [] Principal diagnosis: ESRD Interval history: Constitutional Vitals: Vital Signs Temp Pulse Resp BP Pulse Ox O2 Del Method 36.5 C 60 16 106/54 98 01/31/22 09:28 01/31/22 11:59 01/31/22 07:28 01/31/22 11:59 01/31/22 07:28 01/31/22 07:28 Period Temp Pulse Resp BP Sys/Oliveira Pulse Ox O2 Del Method O2 Flow Rate Last 24 Hr 36.1 C-36.6 C 60-76 16-18 91-140/52-75 96-99 Room Air-Room Air Intake and Output 01/30/22 01/31/22 01/31/22 21:59 05:59 13:59 Intake Total 400 120 240 Output Total 200 Balance 400 -80 240 Weight 112.854 kg Intake & Output: Intake & Output 01/30/22 01/31/22 01/31/22 21:59 05:59 13:59 Intake Total 400 120 240 Output Total 200 Balance 400 -80 240 Weight 112.854 kg Intake: Oral 400 120 240 Output: Void Amount 200 Other: Meal Lunch diet cranberry juice Breakfast Percent of Meal Consumed 75% 100% 50% Feeding Ability Assist with Tray Set Up Independent Independent Urine Appearance Clear Urine Color Dark Yellow General appearance: cooperative Head Head exam: Present normal inspection Eye Eye exam: Present EOMI and PERRL ENT ENT exam: Present mucous membranes dry Neck Neck exam: Present normal inspection; Absent meningismus Respiratory Respiratory exam: Present normal respiratory exam Cardiovascular Cardiovascular exam: Present normal rate and rhythm, +S1 and +S2 GI/Abdominal GI/Abdominal exam: Present normal bowel sounds Neurological Exam Neurological exam: Present abnormal gait (Currently bed ridden due to pain and weakness), altered and CN II-XII intact Psychiatric Psychiatric exam: Present normal affect Skin Skin exam: Present dry Additional findings Additional findings: Left upper arm AV fistula with good function A/P Assessment and plan (1) Anemia in chronic kidney disease: Status: Chronic (2) End stage renal disease: Status: Chronic Comment: dialysis started with Dr. Rose on Apr 25, 2016, fistula in left arm (3) Renal osteodystrophy: Assessment and plan: PTH over 3000 Low calcium so do not increase Sensipar yet Phosphorus acceptable Calcitriol on hold and outside unit I would restart at 0.5 mcg Monday and Monday Status: Chronic Plan Okay for discharge from renal point of view Next dialysis on MondayFebruary 02 probably as an outpatient Restart calcitriol at 0.5 mcg q. Monday and Monday Sepsis Sepsis Identified: No Narrative A/P Narrative: As above Time Spent With Patient Time: Total time spent is greater than 50% in coordination of care (as documented) at patient's floor/unit and/or counseling patient:
[2022-01-31] MEDS: ATORVASTATIN 40 MG TABLET PO SCH (21:17)
[2022-02-01] MEDS: oxyCODONE/APAP 5/325MG TABLET PO PRN (00:02)
[2022-02-01] MEDS: METHOCARBAMOL 500 MG TABLET PO PRN ×3 (00:03→17:18)
[2022-02-01] MEDS: 0.9 % SODIUM CHLORIDE 10 ML SYRINGE IV SCH ×3 (07:30→20:25)
[2022-02-01] MEDS: INSULIN LISPRO 1 UNIT/0.01 ML UNIT SQ SCH ×4 (08:26→20:32)
[2022-02-01] MEDS: METOPROLOL TARTRATE 25 MG TABLET PO SCH ×2 (08:27→20:22)
[2022-02-01] MEDS: ASPIRIN 81 MG TAB.CHEW PO SCH (08:27)
[2022-02-01] MEDS: INSULIN GLARGINE, HUMAN 1 UNIT/0.01 ML SQ SCH ×2 (08:27→20:32)
[2022-02-01] MEDS: CLOPIDOGREL 75 MG TABLET PO SCH (08:27)
[2022-02-01] MEDS: DOCUSATE SODIUM 100 MG CAPSULE PO SCH ×2 (08:28→20:23)
[2022-02-01] MEDS: FUROSEMIDE 40 MG TABLET PO SCH ×2 (08:28→20:23)
[2022-02-01] MEDS: HEPARIN 5,000 UNIT/ML VIAL SQ SCH ×2 (08:28→20:24)
--- NOTE | 2022-02-01 10:10 | Internal Med Progress Note ---
SUBJECTIVE Subjective Patient information: Note initiated : 02/01/22 at 10:09 am Service Date, if different from initiated Date: [] Patient: Fiorella Mcfarlane a 71 y/o F admitted on 01/29/22 for Weakness. Chief Complaint: [] Principal diagnosis: ESRD Interval history: History of present illness: Ms. Mcfarlane is a 71 year old F Presents to the ED with weakness following left hip pain. She was recently admitted at [facility] overnight for hip pain and hypertensive urgency. She was diagnosed with sciatica and discharged with diclofenac gel. Family unable to obtain the prescription due to cost. Presents back today to [facility] because hemodialysis is unavailable at [place], and has had continued hip pain. She denies any fever chills saddle anesthesia bowel or bladder loss. She does get injections by Dr. Balaji neumann for her hip pain. She denies dysuria. Patient states she has chronic hip pain and has been getting injections on the right side and site has been doing well as of late but then her left side sta rted acting up and more severe than her right. Imaging unremarkable except for significant DJD of spine and spinal stenosis. She had 1 episode of nausea vomiting at dialysis on Monday but otherwise feeling well and none since. Patient is weak and does live by herself and has had falls. She found found to have leukocytosis. Chest x-ray unremarkable. Urinalysis not indicative of infection unless early infection. Dr. De La Garza contacted and available for hemodialysis consult. 01/30 No overnight event or new complaints. Patient feeling a little bit better. Otherwise worried to start getting up moving because the pain typically starts when she moves. 01/31 Patient got up to the bathroom yesterday use in the assist walker. She has she did fairly well and that she got morphine prior to getting up. Try an LSO brace. Awaiting labs. No other pains or complaints. 02/01 Patient states yesterday she did not do as well get up and go the bathroom. Resting in bed this morning comfortable. No overnight event or new complaints. Review of Systems: denies headache/fever/chills/nausea/vomiting/chest or abdominal pain/cough/dyspnea/diarrhea. Otherwise see above. Constitutional Vitals: Vital Signs Temp Pulse Resp BP Pulse Ox O2 Del Method 96.7 F L 68 16 137/61 96 02/01/22 08:00 02/01/22 08:00 02/01/22 08:00 02/01/22 08:00 02/01/22 08:00 02/01/22 08:00 Period Temp Pulse Resp BP Sys/Oliveira Pulse Ox O2 Del Method O2 Flow Rate Last 24 Hr 96.2 F-98.2 F 60-79 16-18 91-159/52-66 94-100 Room Air-Room Air Intake and Output 01/31/22 02/01/22 02/01/22 21:59 05:59 13:59 Intake Total 230 0 Output Total 300 0 Balance -70 0 Weight 65.408 kg Intake & Output: Intake & Output 01/31/22 02/01/22 02/01/22 21:59 05:59 13:59 Intake Total 230 0 Output Total 300 0 Balance -70 0 Weight 65.408 kg Intake: Oral 230 0 Output: Void Amount 300 0 Other: Urine Appearance Clear Urine Color Yellow Urine Odor Normal Exam: General: Alert, Awake, No acute Distress, obese Eyes/N/T: EOMI, Head/Neck: neck supple, CV: RRR, 3/6SM, Pulm: Clear b/l, no wheezing/rhonchi/rales Abd: soft, nontender, +BS x4 Ext: no clubbing/cyanosis, mild b/l LE edema Neuro: Alert, no focal deficits, moves all extremities, Skin: warm/dry OBJ DATA Labs CBC & Chem 7: 01/30/22 07:33 01/31/22 05:31 Labs: Abnormal Lab Results 01/31/22 01/31/22 01/31/22 05:31 05:31 05:30 WBC RBC Hgb Hct RDW MPV Immature Gran % (Auto) [place] # (Auto) Immature Gran # Absolute Neutrophils RBC Morphology Anisocytosis Carbon Dioxide POC Total CO2 Anion Gap 17.0 H POC BUN BUN 62 H Creatinine 4.5 H POC Creatinine Glucose 136 H POC Glucose Calcium 7.7 L POC WB Ioniz Calcium GGT Alkaline Phosphatase Lactate Dehydrogenase Albumin Albumin/Globulin Ratio PTH Intact 2013.0 H Urine Protein Urine Ketones Ur Leukocyte Esterase Urine Bacteria Hyaline Casts Urine Mucus Hep Bs Antibody Positive A 01/30/22 01/30/22 01/29/22 07:33 05:15 12:15 WBC RBC 3.57 L Hgb 10.5 L Hct 33.3 L RDW 15.2 H MPV 8.6 L Immature Gran % (Auto) 0.6 H [place] # (Auto) Immature Gran # Absolute Neutrophils RBC Morphology Anisocytosis Carbon Dioxide 21 L POC Total CO2 21.0 L Anion Gap 18.0 H POC BUN 34 H BUN 41 H Creatinine 3.9 H POC Creatinine 3.8 H Glucose 122 H POC Glucose 199 H Calcium 7.9 L POC WB Ioniz Calcium 0.92 L GGT 83 H Alkaline Phosphatase 118 H Lactate Dehydrogenase 280 H Albumin 2.9 L Albumin/Globulin Ratio 0.8 L PTH Intact Urine Protein Urine Ketones Ur Leukocyte Esterase Urine Bacteria Hyaline Casts Urine Mucus Hep Bs Antibody 01/29/22 01/29/22 01/29/22 12:10 12:10 12:10 WBC RBC Hgb Hct RDW MPV Immature Gran % (Auto) [place] # (Auto) Immature Gran # Absolute Neutrophils RBC Morphology Abnormal A Anisocytosis 1+ A Carbon Dioxide POC Total CO2 Anion Gap POC BUN BUN Creatinine POC Creatinine Glucose POC Glucose Calcium POC WB Ioniz Calcium GGT Alkaline Phosphatase 129 H Lactate Dehydrogenase Albumin Albumin/Globulin Ratio PTH Intact Urine Protein 100 mg/dl A Urine Ketones Trace A Ur Leukocyte Esterase Trace A Urine Bacteria Few A Hyaline Casts 12 H Urine Mucus Few A Hep Bs Antibody 01/29/22 12:10 WBC 15.4 H RBC Hgb Hct RDW 15.1 H MPV Immature Gran % (Auto) 0.6 H [place] # (Auto) 1.26 H Immature Gran # 0.09 H Absolute Neutrophils 11.32 H RBC Morphology Anisocytosis Carbon Dioxide POC Total CO2 Anion Gap POC BUN BUN Creatinine POC Creatinine Glucose POC Glucose Calcium POC WB Ioniz Calcium GGT Alkaline Phosphatase Lactate Dehydrogenase Albumin Albumin/Globulin Ratio PTH Intact Urine Protein Urine Ketones Ur Leukocyte Esterase Urine Bacteria Hyaline Casts Urine Mucus Hep Bs Antibody Meds: Medications Acetaminophen (Acetaminophen 325 Mg Tablet) 650 mg PO Q6HP PRN; Protocol PRN Reason: Per Pain Protocol/Fever > 101 Albuterol/Ipratropium (Ipratropium/Albuterol 3 Ml Ampul.Neb) 3 ml NEB Q4HP PRN PRN Reason: Shortness Of Breath Aspirin (Aspirin 81 Mg Tab.Chew) 81 mg PO DAILY [facility] Last Admin: 02/01/22 08:27 Dose: 81 mg Atorvastatin Calcium (Atorvastatin 40 Mg Tablet) 80 mg PO QHS [facility] Last Admin: 01/31/22 21:17 Dose: 80 mg Calcitriol (Calcitriol 0.25 Mcg Capsule) 1 mcg PO 3XW [facility] Clopidogrel Bisulfate (Clopidogrel 75 Mg Tablet) 75 mg PO QDAY [facility] Last Admin: 02/01/22 08:27 Dose: 75 mg Dextrose (Dextrose 50% 50 Ml Vial) 0 ml IV UD PRN PRN Reason: Per Sliding Scale Diagnostic Test (Pha) (Accu-Chek 1 Each Strip) 1 each FS [facility] Last Admin: 02/01/22 07:28 Dose: 1 each Docusate Sodium (Docusate Sodium 100 Mg Capsule) 100 mg PO BID [facility] Last Admin: 02/01/22 08:28 Dose: 100 mg Furosemide (Furosemide 40 Mg Tablet) 40 mg PO BID [facility] Last Admin: 02/01/22 08:28 Dose: 40 mg Glucose (Dextrose 31 Gm Oral.Susp) 15 gm PO PRN PRN PRN Reason: Hypoglycemia Heparin Sodium (Porcine) (Heparin 5,000 Unit/Ml Vial) 5,000 unit SQ Q12 [facility] Last Admin: 02/01/22 08:28 Dose: 5,000 unit Hydralazine HCl (Hydralazine 20 Mg/Ml Vial) 0 mg IV Q2HP PRN PRN Reason: Hypertension Potassium Chloride 40 meq/ (Dextrose) 520 mls @ 130 mls/hr IV UD PRN PRN Reason: Potassium < 3 Magnesium Sulfate (Magnesium Sulfate) 2 gm in 50 mls @ 50 mls/hr IV UD PRN PRN Reason: Magnesium </= 1.6 Insulin Glargine (Insulin Glargine, Human 1 Unit/0.01 Ml) 10 unit SQ BID [facility] Last Admin: 02/01/22 08:27 Dose: 10 units Insulin Human Lispro (Insulin Lispro 1 Unit/0.01 Ml Unit) 0 unit SQ [facility]; Protocol Last Admin: 02/01/22 08:26 Dose: 2 units Labetalol HCl (Labetalol 5 Mg/Ml Ml) 0 mg IV Q2HP PRN PRN Reason: Hypertension Methocarbamol (Methocarbamol 500 Mg Tablet) 500 mg PO QIDP PRN PRN Reason: Muscle Spasm Last Admin: 02/01/22 08:27 Dose: 500 mg Metoprolol Tartrate (Metoprolol Tartrate 25 Mg Tablet) 25 mg PO BID [facility] Last Admin: 02/01/22 08:27 Dose: 25 mg Morphine Sulfate (Morphine 4 Mg/Ml Vial) 0 mg IV Q3HP PRN PRN Reason: Pain Last Admin: 01/31/22 13:57 Dose: 3 mg Ondansetron HCl (Ondansetron 4 Mg/2 Ml Vial) 4 mg IV Q4HP PRN PRN Reason: Nausea And Vomiting Oxycodone/Acetaminophen (Oxycodone/Apap 5/325mg Tablet) 1 tab PO Q4-6HP PRN; Protocol PRN Reason: Per Pain Protocol Last Admin: 02/01/22 00:02 Dose: 1 tab Polyethylene Glycol (Polyethylene Glycol 3350 17 Gm Packet) 17 gm PO DAILYP PRN PRN Reason: Constipation Potassium Chloride (Potassium Chloride 20 Meq Tablet) 40 meq PO UD PRN PRN Reason: Potssium is 3-3.5 Potassium Chloride (Potassium Chloride 20 Meq Tablet) 40 meq PO UD PRN PRN Reason: Potassium < 3 Senna (Sennosides 1 Tablet) 2 tab PO DAILYP PRN PRN Reason: Constipation Sodium Chloride (0.9 % Sodium Chloride 10 Ml Syringe) 10 ml IV Q8 [facility] Last Admin: 02/01/22 07:30 Dose: 10 ml A/P Narrative A/P Narrative: A: *Generalized weakness/deconditioning/falling: *possible L3 mild comp Fx, DJD and spinal stenosis: *Acute on chronic left hip pain: Follows with Dr. Carpio for injections -Recently admitted overnight at [place] for sciatica. -Was receiving injections to the right hip with good improvement but now the left "acting up" *ESRD: *DM 2: *PVD: Follows with Dr. Carpio *HTN: P: -Pain control -Pending UC -Nephro for HD -cont asa/Plavix/statin -cont BB, lasix -ssi and basal -PT/OT -CM for placement -f/u with Dr. Carpio for hip injections -ppx: Heparin Time Spent With Patient Time: Total time spent is greater than 50% in coordination of care (as documented) at patient's floor/unit and/or counseling patient: QUALITY VTE Deep Vein Thrombosis/Pulmonary Embolism Present on Admission: No
[2022-02-01] MEDS: morphine 4 MG/ML VIAL IV PRN (12:21)
--- NOTE | 2022-02-01 18:21 | Nephrology Progress Note ---
SUBJECTIVE Subjective Patient information: Note initiated : 02/01/22 at 6:13 pm Service Date, if different from initiated Date: [] Patient: Fiorella Mcfarlane 71 y/o F admitted on 01/29/22 for Weakness. Chief Complaint: [] Principal diagnosis: ESRD Interval history: Can't walk Still in obs status Tomorrow is HD Earliest D/C is If she is truly no ambulatory, why could not case management arrange for home to HD transport by ambulance is she meets medicare definition of bedfast/non- ambulatory. Pertinent ROS: Tearful States she is not ambulatory due to pain and weekness Additional PMFSH (Level 3 Only): N/A Constitutional Vitals: Vital Signs Temp Pulse Resp BP Pulse Ox O2 Del Method 36.1 C 75 16 119/68 95 02/01/22 16:00 02/01/22 16:00 02/01/22 16:00 02/01/22 16:00 02/01/22 16:00 02/01/22 16:00 Period Temp Pulse Resp BP Sys/Oliveira Pulse Ox O2 Del Method O2 Flow Rate Last 24 Hr 35.9 C-36.8 C 68-75 16-16 108-137/60-68 94-96 Room Air-Room Air Intake and Output 02/01/22 02/01/22 02/01/22 05:59 13:59 21:59 Intake Total 0 Output Total 0 Balance 0 Weight 65.408 kg Patient Weight 02/02/22 05:59 Weight 65.408 kg Intake & Output: Intake & Output 02/01/22 02/01/22 02/01/22 05:59 13:59 21:59 Intake Total 0 Output Total 0 Balance 0 Weight 65.408 kg Intake: Oral 0 Output: Void Amount 0 Other: Meal Lunch Percent of Meal Consumed 50% Feeding Ability Independent General appearance: mild distress Eye Eye exam: Present EOMI and PERRL ENT ENT exam: Present mucous membranes dry Neck Neck exam: Present normal inspection Respiratory Respiratory exam: Present decreased breath sounds Cardiovascular Cardiovascular exam: Present normal rate and rhythm, +S1 and +S2; Absent JVD Extremities Exam Extremities exam: Present pedal edema Neurological Exam Neurological exam: Present alert and CN II-XII intact Psychiatric Psychiatric exam: Present anxious and depressed Additional comments: tearful Skin Skin exam: Present dry and erythema A/P Assessment and plan (1) End stage renal disease: Status: Chronic Comment: dialysis started with Dr. Rose on Apr 25, 2016, fistula in left arm Plan q mwf hd Sepsis Sepsis Identified: No Time Spent With Patient Time: Total time spent is greater than 50% in coordination of care (as documented) at patient's floor/unit and/or counseling patient:
[2022-02-01] MEDS: ATORVASTATIN 40 MG TABLET PO SCH (20:22)
[2022-02-02] MEDS: INSULIN LISPRO 1 UNIT/0.01 ML UNIT SQ SCH ×5 (07:48→20:39)
[2022-02-02] MEDS: 0.9 % SODIUM CHLORIDE 10 ML SYRINGE IV SCH ×3 (07:48→20:39)
--- NOTE | 2022-02-02 08:17 | Internal Med Progress Note ---
SUBJECTIVE Subjective Patient information: Note initiated : 02/02/22 at 8:16 am Service Date, if different from initiated Date: [] Patient: Fiorella Mcfarlane a 71 y/o F admitted on 01/29/22 for Weakness. Chief Complaint: [] Principal diagnosis: ESRD Interval history: History of present illness: Ms. Mcfarlane is a 71 year old F Presents to the ED with weakness following left hip pain. She was recently admitted at [facility] overnight for hip pain and hypertensive urgency. She was diagnosed with sciatica and discharged with diclofenac gel. Family unable to obtain the prescription due to cost. Presents back today to [facility] because hemodialysis is unavailable at [place], and has had continued hip pain. She denies any fever chills saddle anesthesia bowel or bladder loss. She does get injections by Dr. Balaji ramirez for her hip pain. She denies dysuria. Patient states she has chronic hip pain and has been getting injections on the right side and site has been doing well as of late but then her left side star devin acting up and more severe than her right. Imaging unremarkable except for significant DJD of spine and spinal stenosis. She had 1 episode of nausea vomiting at dialysis on Monday but otherwise feeling well and none since. Patient is weak and does live by herself and has had falls. She found found to have leukocytosis. Chest x-ray unremarkable. Urinalysis not indicative of infection unless early infection. Dr. De La Garza contacted and available for hemodialysis consult. 01/30 No overnight event or new complaints. Patient feeling a little bit better. Otherwise worried to start getting up moving because the pain typically starts when she moves. 01/31 Patient got up to the bathroom yesterday use in the assist walker. She has she did fairly well and that she got morphine prior to getting up. Try an LSO brace. Awaiting labs. No other pains or complaints. 02/01 Patient states yesterday she did not do as well get up and go the bathroom. Resting in bed this morning comfortable. No overnight event or new complaints. 02/02 Patient and bed getting dialysis. She says maybe her pain is little bit better over the past 24 hours. Review of Systems: denies headache/fever/chills/nausea/vomiting/chest or abdominal pain/cough/dyspnea/diarrhea. Otherwise see above. Constitutional Vitals: Vital Signs Temp Pulse Resp BP Pulse Ox O2 Del Method 97.2 F 74 12 165/66 97 02/02/22 07:40 02/02/22 07:40 02/02/22 03:07 02/02/22 07:40 02/02/22 07:40 02/02/22 07:40 Period Temp Pulse Resp BP Sys/Oliveira Pulse Ox O2 Del Method O2 Flow Rate Last 24 Hr 96.8 F-98.2 F 69-75 12-16 91-165/47-68 95-100 Room Air-Room Air Intake and Output 02/01/22 02/02/22 02/02/22 21:59 05:59 13:59 Intake Total 200 Balance 200 Weight 66.86 kg Intake & Output: Intake & Output 02/01/22 02/02/22 02/02/22 21:59 05:59 13:59 Intake Total 200 Balance 200 Weight 66.86 kg Intake: Oral 200 Other: Meal Dinner Percent of Meal Consumed 75% Feeding Ability Independent Exam: General: Alert, Awake, No acute Distress, obese Eyes/N/T: EOMI, Head/Neck: neck supple, CV: RRR, 3/6SM, Pulm: Clear b/l, no wheezing/rhonchi/rales Abd: soft, nontender, +BS x4 Ext: no clubbing/cyanosis, mild b/l LE edema Neuro: Alert, no focal deficits, moves all extremities, Skin: warm/dry OBJ DATA Labs CBC & Chem 7: 01/30/22 07:33 01/31/22 05:31 Labs: Abnormal Lab Results 01/31/22 01/31/22 01/31/22 05:31 05:31 05:30 RBC Hgb Hct RDW MPV Immature Gran % (Auto) Anion Gap 17.0 H BUN 62 H Creatinine 4.5 H Glucose 136 H Calcium 7.7 L PTH Intact 2013.0 H Hep Bs Antibody Positive A 01/30/22 07:33 RBC 3.57 L Hgb 10.5 L Hct 33.3 L RDW 15.2 H MPV 8.6 L Immature Gran % (Auto) 0.6 H Anion Gap BUN Creatinine Glucose Calcium PTH Intact Hep Bs Antibody Meds: Medications Acetaminophen (Acetaminophen 325 Mg Tablet) 650 mg PO Q6HP PRN; Protocol PRN Reason: Per Pain Protocol/Fever > 101 Albuterol/Ipratropium (Ipratropium/Albuterol 3 Ml Ampul.Neb) 3 ml NEB Q4HP PRN PRN Reason: Shortness Of Breath Aspirin (Aspirin 81 Mg Tab.Chew) 81 mg PO DAILY [facility] Last Admin: 02/01/22 08:27 Dose: 81 mg Atorvastatin Calcium (Atorvastatin 40 Mg Tablet) 80 mg PO QHS [facility] Last Admin: 02/01/22 20:22 Dose: 80 mg Calcitriol (Calcitriol 0.25 Mcg Capsule) 1 mcg PO 3XW [facility] Clopidogrel Bisulfate (Clopidogrel 75 Mg Tablet) 75 mg PO QDAY [facility] Last Admin: 02/01/22 08:27 Dose: 75 mg Darbepoetin Natalio (Darbepoetin Natalio 100 Mcg/Ml Vial) 100 mcg IV WEEKLY [facility] Dextrose (Dextrose 50% 50 Ml Vial) 0 ml IV UD PRN PRN Reason: Per Sliding Scale Diagnostic Test (Pha) (Accu-Chek 1 Each Strip) 1 each FS ACHS [facility] Last Admin: 02/02/22 07:31 Dose: 1 each Docusate Sodium (Docusate Sodium 100 Mg Capsule) 100 mg PO BID [facility] Last Admin: 02/01/22 20:23 Dose: 100 mg Furosemide (Furosemide 40 Mg Tablet) 40 mg PO BID [facility] Last Admin: 02/01/22 20:23 Dose: 40 mg Glucose (Dextrose 31 Gm Oral.Susp) 15 gm PO PRN PRN PRN Reason: Hypoglycemia Heparin Sodium (Porcine) (Heparin 5,000 Unit/Ml Vial) 5,000 unit SQ Q12 [facility] Last Admin: 02/01/22 20:24 Dose: 5,000 unit Hydralazine HCl (Hydralazine 20 Mg/Ml Vial) 0 mg IV Q2HP PRN PRN Reason: Hypertension Potassium Chloride 40 meq/ (Dextrose) 520 mls @ 130 mls/hr IV UD PRN PRN Reason: Potassium < 3 Magnesium Sulfate (Magnesium Sulfate) 2 gm in 50 mls @ 50 mls/hr IV UD PRN PRN Reason: Magnesium </= 1.6 Insulin Glargine (Insulin Glargine, Human 1 Unit/0.01 Ml) 10 unit SQ BID [facility] Last Admin: 02/01/22 20:32 Dose: 10 units Insulin Human Lispro (Insulin Lispro 1 Unit/0.01 Ml Unit) 0 unit SQ ACHS [facility]; Protocol Last Admin: 02/02/22 07:48 Dose: 2 units Labetalol HCl (Labetalol 5 Mg/Ml Ml) 0 mg IV Q2HP PRN PRN Reason: Hypertension Methocarbamol (Methocarbamol 500 Mg Tablet) 500 mg PO QIDP PRN PRN Reason: Muscle Spasm Last Admin: 02/01/22 17:18 Dose: 500 mg Metoprolol Tartrate (Metoprolol Tartrate 25 Mg Tablet) 25 mg PO BID [facility] Last Admin: 02/01/22 20:22 Dose: 25 mg Morphine Sulfate (Morphine 4 Mg/Ml Vial) 0 mg IV Q3HP PRN PRN Reason: Pain Last Admin: 02/01/22 12:21 Dose: 3 mg Ondansetron HCl (Ondansetron 4 Mg/2 Ml Vial) 4 mg IV Q4HP PRN PRN Reason: Nausea And Vomiting Oxycodone/Acetaminophen (Oxycodone/Apap 5/325mg Tablet) 1 tab PO Q4-6HP PRN; Protocol PRN Reason: Per Pain Protocol Last Admin: 02/01/22 00:02 Dose: 1 tab Polyethylene Glycol (Polyethylene Glycol 3350 17 Gm Packet) 17 gm PO DAILYP PRN PRN Reason: Constipation Potassium Chloride (Potassium Chloride 20 Meq Tablet) 40 meq PO UD PRN PRN Reason: Potssium is 3-3.5 Potassium Chloride (Potassium Chloride 20 Meq Tablet) 40 meq PO UD PRN PRN Reason: Potassium < 3 Senna (Sennosides 1 Tablet) 2 tab PO DAILYP PRN PRN Reason: Constipation Sodium Chloride (0.9 % Sodium Chloride 10 Ml Syringe) 10 ml IV Q8 [facility] Last Admin: 02/02/22 07:48 Dose: 10 ml A/P Narrative A/P Narrative: A: *Generalized weakness/deconditioning/falling: *possible L3 mild comp Fx, DJD and spinal stenosis: *Acute on chronic left hip pain: Follows with Dr. Carpio for injections -Recently admitted overnight at [place] for sciatica. -Was receiving injections to the right hip with good improvement but now the left "acting up" *ESRD: *DM 2: *PVD: Follows with Dr. Carpio *HTN: P: -Pain control -Nephro for HD -cont asa/Plavix/statin -cont BB, lasix -ssi and basal -PT/OT -CM for placement -f/u with Dr. Carpio for hip injections -ppx: Heparin Time Spent With Patient Time: Total time spent is greater than 50% in coordination of care (as documented) at patient's floor/unit and/or counseling patient: QUALITY VTE Deep Vein Thrombosis/Pulmonary Embolism Present on Admission: No
[2022-02-02] MEDS: HEPARIN 5,000 UNIT/ML VIAL SQ SCH ×2 (08:29→20:32)
[2022-02-02] MEDS: CLOPIDOGREL 75 MG TABLET PO SCH (08:29)
[2022-02-02] MEDS: METOPROLOL TARTRATE 25 MG TABLET PO SCH ×2 (08:29→20:29)
[2022-02-02] MEDS: DOCUSATE SODIUM 100 MG CAPSULE PO SCH ×2 (08:29→20:29)
[2022-02-02] MEDS: FUROSEMIDE 40 MG TABLET PO SCH ×2 (08:29→20:29)
[2022-02-02] MEDS: INSULIN GLARGINE, HUMAN 1 UNIT/0.01 ML SQ SCH ×2 (08:30→20:32)
[2022-02-02] MEDS: ASPIRIN 81 MG TAB.CHEW PO SCH (08:31)
[2022-02-02] MEDS ORDERED: DARBEPOETIN ALFA 100 MCG/ML VIAL IV SCH (13:30)
[2022-02-02] MEDS: oxyCODONE/APAP 5/325MG TABLET PO PRN ×2 (14:00→20:28)
[2022-02-02] MEDS: morphine 4 MG/ML VIAL IV PRN ×2 (14:02→14:21)
--- NOTE | 2022-02-02 14:14 | Internal Med Progress Note ---
SUBJECTIVE Subjective Patient information: Note initiated : 02/02/22 at 2:13 pm Service Date, if different from initiated Date: [] Patient: Fiorella Mcfarlane a 71 y/o F admitted on 01/29/22 for Weakness. Chief Complaint: [] Principal diagnosis: ESRD Interval history: History of present illness: Ms. Mcfarlane is a 71 year old F Presents to the ED with weakness following left hip pain. She was recently admitted at [facility] overnight for hip pain and hypertensive urgency. She was diagnosed with sciatica and discharged with diclofenac gel. Family unable to obtain the prescription due to cost. Presents back today to [facility] because hemodialysis is unavailable at [place], and has had continued hip pain. She denies any fever chills saddle anesthesia bowel or bladder loss. She does get injections by Dr. Balaji ramirez for her hip pain. She denies dysuria. Patient states she has chronic hip pain and has been getting injections on the right side and site has been doing well as of late but then her left side star devin acting up and more severe than her right. Imaging unremarkable except for significant DJD of spine and spinal stenosis. She had 1 episode of nausea vomiting at dialysis on Monday but otherwise feeling well and none since. Patient is weak and does live by herself and has had falls. She found found to have leukocytosis. Chest x-ray unremarkable. Urinalysis not indicative of infection unless early infection. Dr. De La Garza contacted and available for hemodialysis consult. 01/30 No overnight event or new complaints. Patient feeling a little bit better. Otherwise worried to start getting up moving because the pain typically starts when she moves. 01/31 Patient got up to the bathroom yesterday use in the assist walker. She has she did fairly well and that she got morphine prior to getting up. Try an LSO brace. Awaiting labs. No other pains or complaints. 02/01 Patient states yesterday she did not do as well get up and go the bathroom. Resting in bed this morning comfortable. No overnight event or new complaints. 02/02 Patient and bed getting dialysis. She says maybe her pain is little bit better over the past 24 hours. 02/03 Constitutional Vitals: Vital Signs Temp Pulse Resp BP Pulse Ox O2 Del Method 96.9 F L 66 12 79/47 97 02/02/22 13:27 02/02/22 13:18 02/02/22 12:00 02/02/22 13:27 02/02/22 12:00 02/02/22 12:00 Period Temp Pulse Resp BP Sys/Oliveira Pulse Ox O2 Del Method O2 Flow Rate Last 24 Hr 96.0 F-98.2 F 60-75 12-16 79-165/47-68 95-100 Room Air-Room Air Intake and Output 02/02/22 02/02/22 02/02/22 05:59 13:59 21:59 Intake Total 200 Output Total 1999 Balance 200 -1999 Intake & Output: Intake & Output 02/02/22 02/02/22 02/02/22 05:59 13:59 21:59 Intake Total 200 Output Total 1999 Balance 200 -1999 Intake: Oral 200 Output: Hemodialysis UF 2000 OBJ DATA Labs CBC & Chem 7: 01/30/22 07:33 01/31/22 05:31 Labs: Abnormal Lab Results 01/31/22 01/31/22 01/31/22 05:31 05:31 05:30 Anion Gap 17.0 H BUN 62 H Creatinine 4.5 H Glucose 136 H Calcium 7.7 L PTH Intact 2013.0 H Hep Bs Antibody Positive A Meds: Medications Acetaminophen (Acetaminophen 325 Mg Tablet) 650 mg PO Q6HP PRN; Protocol PRN Reason: Per Pain Protocol/Fever > 101 Albuterol/Ipratropium (Ipratropium/Albuterol 3 Ml Ampul.Neb) 3 ml NEB Q4HP PRN PRN Reason: Shortness Of Breath Aspirin (Aspirin 81 Mg Tab.Chew) 81 mg PO DAILY [facility] Last Admin: 02/02/22 08:31 Dose: 81 mg Atorvastatin Calcium (Atorvastatin 40 Mg Tablet) 80 mg PO QHS [facility] Last Admin: 02/01/22 20:22 Dose: 80 mg Calcitriol (Calcitriol 0.25 Mcg Capsule) 1 mcg PO 3XW RUEL Clopidogrel Bisulfate (Clopidogrel 75 Mg Tablet) 75 mg PO QDAY [facility] Last Admin: 02/02/22 08:29 Dose: 75 mg Darbepoetin Natalio (Darbepoetin Natalio 100 Mcg/Ml Vial) 100 mcg IV Q7D [facility] Last Admin: 02/02/22 13:49 Dose: 100 mcg Dextrose (Dextrose 50% 50 Ml Vial) 0 ml IV UD PRN PRN Reason: Per Sliding Scale Diagnostic Test (Pha) (Accu-Chek 1 Each Strip) 1 each FS ACHS [facility] Last Admin: 02/02/22 11:34 Dose: 1 each Docusate Sodium (Docusate Sodium 100 Mg Capsule) 100 mg PO BID [facility] Last Admin: 02/02/22 08:29 Dose: 100 mg Furosemide (Furosemide 40 Mg Tablet) 40 mg PO BID [facility] Last Admin: 02/02/22 08:29 Dose: 40 mg Glucose (Dextrose 31 Gm Oral.Susp) 15 gm PO PRN PRN PRN Reason: Hypoglycemia Heparin Sodium (Porcine) (Heparin 5,000 Unit/Ml Vial) 5,000 unit SQ Q12 [facility] Last Admin: 02/02/22 08:29 Dose: 5,000 unit Hydralazine HCl (Hydralazine 20 Mg/Ml Vial) 0 mg IV Q2HP PRN PRN Reason: Hypertension Potassium Chloride 40 meq/ (Dextrose) 520 mls @ 130 mls/hr IV UD PRN PRN Reason: Potassium < 3 Magnesium Sulfate (Magnesium Sulfate) 2 gm in 50 mls @ 50 mls/hr IV UD PRN PRN Reason: Magnesium </= 1.6 Insulin Glargine (Insulin Glargine, Human 1 Unit/0.01 Ml) 10 unit SQ BID [facility] Last Admin: 02/02/22 08:30 Dose: 10 units Insulin Human Lispro (Insulin Lispro 1 Unit/0.01 Ml Unit) 0 unit SQ [facility]; Protocol Last Admin: 02/02/22 14:04 Dose: 4 units Labetalol HCl (Labetalol 5 Mg/Ml Ml) 0 mg IV Q2HP PRN PRN Reason: Hypertension Methocarbamol (Methocarbamol 500 Mg Tablet) 500 mg PO QIDP PRN PRN Reason: Muscle Spasm Last Admin: 02/01/22 17:18 Dose: 500 mg Metoprolol Tartrate (Metoprolol Tartrate 25 Mg Tablet) 25 mg PO BID [facility] Last Admin: 02/02/22 08:29 Dose: 25 mg Morphine Sulfate (Morphine 4 Mg/Ml Vial) 0 mg IV Q3HP PRN PRN Reason: Pain Last Admin: 02/02/22 14:02 Dose: 4 mg Ondansetron HCl (Ondansetron 4 Mg/2 Ml Vial) 4 mg IV Q4HP PRN PRN Reason: Nausea And Vomiting Oxycodone/Acetaminophen (Oxycodone/Apap 5/325mg Tablet) 1 tab PO Q4-6HP PRN; Protocol PRN Reason: Per Pain Protocol Last Admin: 02/02/22 14:00 Dose: 1 tab Polyethylene Glycol (Polyethylene Glycol 3350 17 Gm Packet) 17 gm PO DAILYP PRN PRN Reason: Constipation Potassium Chloride (Potassium Chloride 20 Meq Tablet) 40 meq PO UD PRN PRN Reason: Potssium is 3-3.5 Potassium Chloride (Potassium Chloride 20 Meq Tablet) 40 meq PO UD PRN PRN Reason: Potassium < 3 Senna (Sennosides 1 Tablet) 2 tab PO DAILYP PRN PRN Reason: Constipation Sodium Chloride (0.9 % Sodium Chloride 10 Ml Syringe) 10 ml IV Q8 RUEL Last Admin: 02/02/22 07:48 Dose: 10 ml A/P Narrative A/P Narrative: A: *Generalized weakness/deconditioning/falling: *possible L3 mild comp Fx, DJD and spinal stenosis: *Acute on chronic left hip pain: Follows with Dr. Carpio for injections -Recently admitted overnight at [place] for sciatica. -Was receiving injections to the right hip with good improvement but now the left "acting up" *ESRD: *DM 2: *PVD: Follows with Dr. Carpio *HTN: P: -Pain control -Nephro for HD -cont asa/Plavix/statin -cont BB, lasix -ssi and basal -PT/OT -CM for placement -f/u with Dr. Carpio for hip injections -ppx: Heparin Time Spent With Patient Time: Total time spent is greater than 50% in coordination of care (as documented) at patient's floor/unit and/or counseling patient: QUALITY VTE Deep Vein Thrombosis/Pulmonary Embolism Present on Admission: No
--- NOTE | 2022-02-02 16:53 | Nephrology Progress Note ---
SUBJECTIVE Subjective Patient information: Note initiated : 02/02/22 at 4:41 pm Service Date, if different from initiated Date: [] Patient: Fiorella Mcfarlane 71 y/o F admitted on 01/29/22 for Weakness. Chief Complaint: [] Principal diagnosis: ESRD Interval history: Uneventful HD today except for some end of run hypotension that improved post- blood return. 2 L ultrafiltration Aranesp given Vital Signs Temp Pulse Pulse Resp BP BP Pulse Ox 02/02/22 16:26 36.2 C 73 17 128/67 95 02/02/22 12:00 35.6 C L 62 12 95/51 97 02/02/22 13:27 36.1 C L 79/47 02/02/22 13:18 66 109/53 02/02/22 13:02 62 109/53 02/02/22 12:42 62 95/51 02/02/22 12:26 62 105/50 02/02/22 12:12 66 97/49 02/02/22 11:57 60 103/51 02/02/22 11:43 60 105/51 02/02/22 11:26 70 103/53 02/02/22 11:12 60 112/53 02/02/22 10:57 65 120/54 02/02/22 10:45 68 104/53 02/02/22 10:30 60 104/55 02/02/22 10:13 68 112/54 02/02/22 09:59 68 118/55 02/02/22 09:42 60 113/52 02/02/22 09:27 36.1 C L 69 116/53 02/02/22 07:40 36.2 C 74 165/66 97 02/02/22 03:07 36.7 C 69 12 139/66 97 02/01/22 23:04 36.8 C 74 12 129/62 96 02/01/22 19:00 36.8 C 70 12 91/47 100 O2 Del Method 02/02/22 16:26 Room Air 02/02/22 12:00 Room Air 02/02/22 13:27 02/02/22 13:18 02/02/22 13:02 02/02/22 12:42 02/02/22 12:26 02/02/22 12:12 02/02/22 11:57 02/02/22 11:43 02/02/22 11:26 02/02/22 11:12 02/02/22 10:57 02/02/22 10:45 02/02/22 10:30 02/02/22 10:13 02/02/22 09:59 02/02/22 09:42 02/02/22 09:27 02/02/22 07:40 Room Air 02/02/22 03:07 Room Air 02/01/22 23:04 Room Air 02/01/22 19:00 Room Air Intake and Output 02/02/22 02/02/22 02/02/22 05:59 13:59 21:59 Intake Total 200 Output Total 1999 Balance 200 -1999 Intake: Oral 200 Output: Hemodialysis UF 1999 Pertinent ROS: Will not move left leg due to hip pain Additional PMFSH (Level 3 Only): N/AA Constitutional Vitals: Vital Signs Temp Pulse Resp BP Pulse Ox O2 Del Method 36.2 C 73 17 128/67 95 02/02/22 16:26 02/02/22 16:26 02/02/22 16:26 02/02/22 16:26 02/02/22 16:26 02/02/22 16:26 Period Temp Pulse Resp BP Sys/Oliveira Pulse Ox O2 Del Method O2 Flow Rate Last 24 Hr 35.6 C-36.8 C 60-74 12-17 79-165/47-67 95-100 Room Air-Room Air Intake and Output 02/02/22 02/02/22 02/02/22 05:59 13:59 21:59 Intake Total 200 Output Total 1999 Balance 200 -1999 Intake & Output: Intake & Output 02/02/22 02/02/22 02/02/22 05:59 13:59 21:59 Intake Total 200 Output Total 1999 Balance -1999 Intake: Oral 200 Output: Hemodialysis UF 1999 General appearance: mild distress Eye Eye exam: Present EOMI and PERRL ENT ENT exam: Present mucous membranes dry Neck Neck exam: Present normal inspection Respiratory Respiratory exam: Present decreased breath sounds Cardiovascular Cardiovascular exam: Present normal rate and rhythm, +S1 and +S2; Absent JVD Extremities Exam Extremities exam: Present pedal edema Additional comments: Will not lift or move right leg or right hip Right has 4+ motor strength and much less pain Neurological Exam Neurological exam: Present alert and CN II-XII intact Psychiatric Psychiatric exam: Present anxious and depressed Additional comments: tearful Skin Skin exam: Present dry and erythema A/P Assessment and plan (1) Anemia in ESRD (end-stage renal disease): Assessment and plan: Aranesp 100 mcg q. Monday with dialysis Status: Acute (2) End stage renal disease: Status: Chronic Comment: dialysis started with Dr. Rose on Apr 25, 2016, fistula in left arm (3) Renal osteodystrophy: Assessment and plan: Consider left hip osteonecrosis PTH approaching 2000 Increase calcitriol Holding Sensipar due to decreased calcium Status: Chronic Plan * As best I can tell if this patient is not discharged tomorrow she will be here till Monday given the "rule" that the patient cannot be discharged on the day of dialysis * Next dialysis treatment is Monday * Given the lab work that suggests hyperparathyroidism, She should be checked for aseptic necrosis of the left hip with an MRI. Admittedly she states all she needs is to have further steroid injections by Dr. Carpio at [facility] Narrative A/P Narrative: Dialysis Monday and Monday If worse comes to worse, you could declare her as bedridden/nonambulatory and needs ambulance transport to and from the dialysis Plan of Treatment: Dialysis Monday and Monday Aranesp on Wednesdays Hopefully discharge tomorrow to return to her home unit Continue the increased dose of calcitriol 1 mcg Monday and Monday and have Dr. Rose monitor PTH calcium and phosphorus as an outpatient in his unit Time Spent With Patient Time: Total time spent is greater than 50% in coordination of care (as documented) at patient's floor/unit and/or counseling patient:
[2022-02-02] MEDS: ATORVASTATIN 40 MG TABLET PO SCH (20:29)
[2022-02-02] MEDS: METHOCARBAMOL 500 MG TABLET PO PRN (23:47)
[2022-02-03] MEDS: 0.9 % SODIUM CHLORIDE 10 ML SYRINGE IV SCH (07:30)
[2022-02-03] MEDS: INSULIN LISPRO 1 UNIT/0.01 ML UNIT SQ SCH ×2 (07:54→11:56)
[2022-02-03] MEDS: METOPROLOL TARTRATE 25 MG TABLET PO SCH (08:31)
[2022-02-03] MEDS: INSULIN GLARGINE, HUMAN 1 UNIT/0.01 ML SQ SCH (08:31)
[2022-02-03] MEDS: ASPIRIN 81 MG TAB.CHEW PO SCH (08:31)
[2022-02-03] MEDS: DOCUSATE SODIUM 100 MG CAPSULE PO SCH (08:31)
[2022-02-03] MEDS: METHOCARBAMOL 500 MG TABLET PO PRN (08:31)
[2022-02-03] MEDS: HEPARIN 5,000 UNIT/ML VIAL SQ SCH (08:32)
[2022-02-03] MEDS: FUROSEMIDE 40 MG TABLET PO SCH (08:32)
[2022-02-03] MEDS: CLOPIDOGREL 75 MG TABLET PO SCH (08:32)
--- NOTE | 2022-02-03 10:48 | Discharge Summary ---
Discharge Provider Provider IMPORTANT FOLLOW-UP INFORMATION FOR PCP: Patient information: Note initiated : 02/03/22 at 10:46 am Service Date, if different from initiated Date: [] Patient: Fiorella Mcfarlane 71 y/o F admitted on 01/29/22 for Weakness. Chief Complaint: [] Date of admission: 01/29/22 17:53 Discharge date: 02/03/22 Primary care physician: Randi Cameron Consults: 01/29/22 Consult to Physician [CONS] Stat Comment: Consulting Provider: Dawood Waddell Reason For Exam: Physician to Consult 01/29/22 18:14 Consult to Physician [CONS] Routine Comment: esrd Consulting Provider: Naomy De La Garza Reason For Exam: Physician to Consult COURSE Hospital Course Hospital course: Ms. Mcfarlane is a 71 year old F Presents to the ED with weakness following left hip pain. She was recently admitted at [facility] overnight for hip pain and hypertensive urgency. She was diagnosed with sciatica and discharged with diclofenac gel. Family unable to obtain the prescription due to cost. Presents back today to [facility] because hemodialysis is unavailable at [place], and has had continued hip pain. She denies any fever chills saddle anesthesia bowel or bladder loss. She does get injections by Dr. Carpio occasionally for her hip pain. She denies dysuria. Patient states she has chronic hip pain and has been getting injections on the right side and site has been doing well as of late but then her left side started acting up and more severe than her right. Imaging unremarkable except for significant DJD of spine and spinal stenosis. She had 1 episode of nausea vomiting at dialysis on Monday but otherwise feeling well and none since. Patient is weak and does live by herself and has had falls. She found found to have leukocytosis. Chest x-ray unremarkable. Urinalysis not indicative of infection unless early infection. Dr. De La Garza contacted and available for hemodialysis consult. 01/30 No overnight event or new complaints. Patient feeling a little bit better. Otherwise worried to start getting up moving because the pain typically starts when she moves. 01/31 Patient got up to the bathroom yesterday use in the assist walker. She has she did fairly well and that she got morphine prior to getting up. Try an LSO brace. Awaiting labs. No other pains or complaints. 10/4 Patient states yesterday she did not do as well get up and go the bathroom. Re sting in bed this morning comfortable. No overnight event or new complaints. 02/02 Patient and bed getting dialysis. She says maybe her pain is little bit better over the past 24 hours. 02/03 Discharged to low intensity rehab, the patient's left lower extremity pain does not improve consider MRI to evaluate for avascular necrosis of the left femoral head. Physical exam Head: Atraumatic, normal inspection. Eyes: normal appearance, no scleral icterus. Neck: full ROM Respiratory: no respiratory distress. Cardiovascular: normal rate and rhythm, S1, S2. GI/Abdominal: soft, nontender, no guarding. Extremities: Tender left thigh, left lower extremity range of motion limited by tenderness Neurological: CN II-XII intact, intact motor, intact sensation. Psychiatric: normal mood. Skin: warm, normal color Discharge diagnosis: Generalized weakness and falls Time Spent with Patient Time attestation: Total time spent providing and/or coordinating discharge services: Time spent: Greater than 30 minutes EXAM Constitutional Vitals: Temp Pulse Resp BP Pulse Ox O2 Del Method 97.3 F 67 18 100/55 98 02/03/22 07:44 02/03/22 07:44 02/03/22 07:44 02/03/22 07:44 02/03/22 07:44 02/03/22 07:44 Discharge Data Data Completed and Pending Labs on day of discharge: Preliminary micro results at discharge 01/29/22 15:32 Blood Culture - Preliminary Blood 01/29/22 15:22 Blood Culture - Preliminary Blood Discharge Plan Patient/Caregiver Discharge Instructions Activity: increase activity as tolerated Diet: Consistent Carbohydrate Prescriptions: New methocarbamol 500 mg Tablet 500 mg PO QIDP PRN (Reason: Muscle Spasm) Qty: 30 0RF Continued atorvastatin 80 mg tablet 80 mg PO QHS Qty: 30 5RF calcitriol 0.5 mcg capsule 1 mcg PO 3XW furosemide 40 mg tablet 40 mg PO BID clopidogrel 75 mg tablet 75 mg PO QDAY metoprolol tartrate 25 mg tablet 25 mg PO BID aspirin 81 MG tablet,delayed release (DR/EC) 81 mg PO DAILY insulin aspart U-100 100 UNIT/ML solution 1 unit subcut QPM Rx Instructions: SS: 150-180=2u, 181-210=3u, 211-240=4u, 241-270=5u, 271-300=6u, 301-330=7u, 331-360=8u, >360= call office ascorbate calcium (vitamin C) 500 MG tablet 500 mg PO DAILY geriatric multivitamin-min Tablet 1 tab PO DAILY Levemir FlexTouch U-100 Insuln 100 unit/mL (3 mL) insulin pen 10 unit SUB-Q BID Follow Up Plan Follow up with: Randi Cameron DNP, NYLON MENDER [Primary Care Provider] - Robert Carpio MD [Physician] - Patient Disposition: Xfer SNF Plan of Treatment: Dialysis Monday and Monday Arap on Wednesdays Hopefully discharge tomorrow to return to her home unit Continue the increased dose of calcitriol 1 mcg Monday and Monday and have Dr. Rose monitor PTH calcium and phosphorus as an outpatient in his unit Prognosis: Fair Rehab Potential: Fair I certify that the patient requires SNF services: Yes Overall status at discharge: patient is progressing back to baseline Discharge Orders: Discharge Order (Routine); Ordered 02/03/22 Ordered By: Sonido Cedillo QUALITY VTE Deep Vein Thrombosis/Pulmonary Embolism Present on Admission: No
[2022-02-03] MEDS: morphine 4 MG/ML VIAL IV PRN (13:23)
--- NOTE | 2022-02-03 15:10 | Nephrology Progress Note ---
SUBJECTIVE Subjective Patient information: Note initiated : 02/03/22 at 3:08 pm Service Date, if different from initiated Date: [] Patient: Fiorella Mcfarlane 71 y/o F admitted on 01/29/22 for Weakness. Chief Complaint: [Left greater than right hip pain] Principal diagnosis: ESRD Interval history: Still has not been up in a chair or using a walker Says her right hip hurts too much to be discharged Next dialysis is tomorrow if she is not discharged today Vital Signs Temp Pulse Resp BP Pulse Ox O2 Del Method 02/03/22 15:01 36.4 C 70 18 107/61 98 Room Air 02/03/22 12:00 36.4 C 70 18 107/61 98 Room Air 02/03/22 07:44 36.3 C 67 18 100/55 98 Room Air 02/03/22 03:46 36.3 C 70 18 123/63 98 Room Air 02/02/22 23:43 36.6 C 71 16 109/60 95 Room Air 02/02/22 19:14 36.7 C 74 18 122/60 97 Room Air 02/02/22 16:50 Room Air 02/02/22 16:26 36.2 C 73 17 128/67 95 Room Air Intake and Output 02/03/22 02/03/22 02/03/22 05:59 13:59 21:59 Intake Total 50 Balance 50 Intake: Oral [address] of the lower extremity albeit rules out left hip aseptic necrosis There is severe spinal stenosis at L4-L5 on a recent CT. she is undergoing IR guided injections for this which she thinks helped the right-sided pain and weakness but the left side persists. Pertinent ROS: Left hip pain Tearful Additional PMFSH (Level 3 Only): Nothing new Constitutional Vitals: Vital Signs Temp Pulse Resp BP Pulse Ox O2 Del Method 36.4 C 70 18 107/61 98 02/03/22 15:01 02/03/22 15:01 02/03/22 15:01 02/03/22 15:01 02/03/22 15:01 02/03/22 15:01 Period Temp Pulse Resp BP Sys/Oliveira Pulse Ox O2 Del Method O2 Flow Rate Last 24 Hr 36.2 C-36.7 C 67-74 16-18 100-128/55-67 95-98 Room Air-Room Air Intake and Output 02/03/22 02/03/22 02/03/22 05:59 13:59 21:59 Intake Total 50 Balance 50 Intake & Output: Intake & Output 02/03/22 02/03/22 02/03/22 05:59 13:59 21:59 Intake Total 50 Balance 50 Intake: Oral 50 General appearance: mild distress Eye Eye exam: Present EOMI and PERRL ENT ENT exam: Present mucous membranes dry Neck Neck exam: Present normal inspection Respiratory Respiratory exam: Present decreased breath sounds Cardiovascular Cardiovascular exam: Present normal rate and rhythm, +S1 and +S2; Absent JVD Extremities Exam Extremities exam: Present pedal edema Additional comments: Will not lift or move right leg or right hip Right has 4+ motor strength and much less pain Neurological Exam Neurological exam: Present alert and CN II-XII intact Psychiatric Psychiatric exam: Present anxious and depressed Additional comments: tearful Skin Skin exam: Present dry and erythema A/P Narrative A/P Narrative: Dialysis orders written for tomorrow February 04 is not discharged today Plan of Treatment: Dialysis Monday and Monday Aranesp on Wednesdays Hopefully discharge today to return to her home unit Continue the increased dose of calcitriol 1 mcg Monday and Monday and have Dr. Rose monitor PTH calcium and phosphorus as an outpatient in his unit
== END 2022-02-03 14:50 ==
LOC: ED 09:26 → MEDSUR 09:26
PROVIDERS: ADMIT Internal Medicine; ATTEND Internal Medicine